=== PATIENT | female | born 1975 | race Caucasian/White ===

== ENCOUNTER 2024-02-25 09:02 | Inpatient (IN) | payer BC, SELFPAY ==
[2024-02-24] VITALS (16 sets, daily range): BP systolic 46–103; BP diastolic 33–79; BMI 25.5; BMI 25.7
[2024-02-24 14:46] LABS: % Basophils 0.9 % (0-2); % Eosinophils 6.4 % (0-6); % Immature Granulocytes 0.1 % (0-0.5); % Lymphocytes 27.6 % (20.5-51.1); Absolute Basophils 0.1 10^3/uL (0-0.2); Absolute Eosinophils 0.5 10^3/uL (0-0.7); Absolute Lymphocytes 2.1 10^3/uL (1.2-3.4); Absolute Monocytes 0.8 10^3/uL (0.1-0.6); Absolute Neutrophils 4.2 10^3/uL (1.4-6.5); Hematocrit 37.9 % (37.0-47.0); Hemoglobin 12.8 g/dL (12.0-16.0); Mean Corp Hgb Conc. 33.8 g/dL (33.0-37.0); Mean Corpuscular Hgb 26.6 pg (27.0-31.0); Mean Corpuscular Volume 78.8 fL (81.0-99.0); Mean Platelet Volume 10.8 fL (7.4-10.4); Nucleated Red Blood Cells % 0 %; Platelet Count 274 10^3/uL (130-400); Red Blood Cell Count 4.81 10^6/uL (4.20-5.40); Red Cell Dist. Width 12.5 % (11.5-14.5); White Blood Cell Count 7.6 10^3/uL (4.8-10.8)
[2024-02-24 14:59] LABS: Lactic Acid 1.7 mmol/L (0.7-2.0)
[2024-02-24 15:06] LABS: ALT (SGPT) 18 U/L (0-35); AST (SGOT) 26 U/L (14-36); Albumin 4.1 g/dl (3.5-5.0); Blood Urea Nitrogen 25 mg/dl (7-17); Carbon Dioxide 15 mmol/L (22-30); Chloride 98 mmol/L (98-107); Glucose 226 mg/dl (70-99); Sodium 134 mmol/L (135-145); eGFR > 60.00
[2024-02-24 15:11] LABS: Troponin I < 0.012 ng/ml
[2024-02-24 15:15] LABS: Alkaline Phosphatase 57 U/L (38-126)
[2024-02-24] MEDS: NSS 1500 IV (15:59)
--- NOTE | 2024-02-24 16:17 | EDRN ---
Dr. Cook in room w/ pt.
--- NOTE | 2024-02-24 16:53 | ED.GENMED ---
History of Present Illness
General
Chief Complaint: Weakness
Source: patient and family (Mother who is at the bedside)
Exam Limitations: none
Time Seen by Provider: 02/24/24 15:49
Nursing documentation reviewed up to this point in time: agreed with
History of Present Illness
History of Present Illness:
The patient is a 48-year-old female with past medical history of insulin-dependent diabetes who reports 2 weeks of decreased appetite, persistent nausea and vomiting. Patient reports anytime she eats something, she vomits it up. She also reports
months of diffuse bodyaches and joint pain. Additionally, she reports a low-grade fever, occurring in the evening for months. She reports of recent, the fevers have been higher. However, she denies cough and sore throat. She denies all abdominal
pain. She denies diarrhea. She denies headache and rash. She states she has lost about 12 pounds over the last 2 weeks. She attributes this to possibly not taking her pancreatic enzyme, however, she stopped taking this years ago.
Past History
Past History
ED Past Medical History: IDDM and Hypothyroidism
ED Past Surgical History: Other
Social History
Tobacco: Smoker
Alcohol: Occasional
Drug: None
Personal:
Living: with family
Employment: Employed
Family History
Family History: Hypertension
Review of Systems
Review of Systems
Allergies reviewed?: Yes
Other source history: family
All Other Systems: ROS reviewed and negative except as documented in HPI and ROS
Constitutional: Reports fever, weight loss, fatigue and chills
EENT: Reports no symptoms
Respiratory: Reports no symptoms
Cardiac: Reports no symptoms
ABD/GI: Reports nausea, vomiting and anorexia; Denies abdominal pain
: Reports no symptoms
Musculoskeletal: Reports joint pain and muscle stiffness
Skin: Reports no symptoms
Neurological: Reports no symptoms
Endocrine: Reports no symptoms
Hematologic/Lymphatic: Reports no symptoms
Psychiatric: Reports no symptoms
Phy Exam
Physical Exam
Physical Exam:
Physical Exam
General: Patient appears pale and tired but fully awake and conversational
Neck: supple. no meningeal signs. Dry mucous membranes
Heart: Tachycardic
Lungs: no acute respiratory distress. clear bilaterally
Abdomen: normal bowel sounds. not tender. no CVAT
Neuro: alert and oriented. no focal neurological deficits
Skin: no rash
Psychiatric: well kept. interactive and cooperative
Extremities: no edema. no calf tenderness. negative homans. good distal pulses
Course
Orders/Labs/Results
Orders:
Orders
02/24/24 14:22
Electrocardiogram (*1) Urgent
Reason for Study: Shortness of Breath
02/24/24 14:23
EKG- Treatment ONCE
02/24/24 14:37
Type+Screen Urgent
Complete Blood Count/With Diff Urgent
Comprehensive Metabolic Panel Urgent
HCG, Serum Qualitative Screen Urgent
Lactic Acid Urgent
Lipase Urgent
Troponin I Urgent
02/24/24 15:54
0.9% Sodium Chloride 1000 ml [Nss] 1,500 ml IV BOLUS
02/24/24 15:56
ABO2 Urgent
BBK Wristband Number:
Associate notified that ABO2 has been ordered: [id number]
Date: 02/24/24
Time: 15:18
Senior Infrastructure Engineer ID: [id number]
02/24/24 16:34
Add On- LAB Urgent
Tests Added?: lipase
02/24/24 16:35
Add On- LAB Urgent
Tests Added?: serum HCG qualitative
Abnormal Lab Results
02/24/24
14:37
MCV 78.8 L fL
(81.0-99.0)
MCH 26.6 L pg
(27.0-31.0)
MPV 10.8 H fL
(7.4-10.4)
Absolute Monos (auto) 0.8 H 10^3/uL
(0.1-0.6)
Monocytes % 10.0 H %
(1.7-9.3)
Eosinophils % 6.4 H %
(0-6)
Sodium 134 L mmol/L
(135-145)
Carbon Dioxide 15 L mmol/L
(22-30)
BUN 25 H mg/dl
(7-17)
Creatinine 1.1 H mg/dL
(0.6-1.0)
Glucose 226 H mg/dl
(70-99)
Calcium 12.0 H mg/dl
(8.4-10.2)
Lipase 16 L U/L
(23-300)
02/24/24 14:37
02/24/24 14:37
Vital Signs
Initial and Last Documented VS:
Initial Vital Signs
Temp Pulse Resp BP Pulse Ox
98.4 F 121 20 98/64 97
02/24/24 14:25 02/24/24 14:25 02/24/24 14:25 02/24/24 14:25 02/24/24 14:25
Last Documented Vital Signs
Temp Pulse Resp BP Pulse Ox
98.4 F 103 13 95/66 100
02/24/24 14:25 02/24/24 17:20 02/24/24 17:20 02/24/24 17:20 02/24/24 17:20
MDM/Problems Addressed
Differential Diagnosis Includes:
DKA, gastritis, delayed stomach emptying due to diabetes
MDM/Problems Addressed:
Patient presents with subacute nausea and vomiting
Chronic conditions affecting care: DM
Acute Exacerbation and/or Progression of Chronic Illness:
Patient is acutely hyperglycemic
*Pulse Oximetry
Patient hypoxic: no
*EKG
Interpreted by ED Provider?: NA
*Bottom Saw Operator Interpretation
Rate: tachycardiac
Interpretation: abnormal
Rhythm: sinus
*Critical Care Note
Total Time (30-74mins, 75-104mins- exclusive of procedures): Not Applicable
Data Reviewed
Source: patient and family
Patient Management
Social determinants of health affecting care: Living situation and Strong social support
ED Attending Note
-
Portions of this chart may have been created with voice recognition software.� Occasional wrong word or��sound alike� substitutions may have occurred due to the inherent limitations of voice recognition software.
Discharge Plan
Departure
Patient Disposition: Admit
Date of Disposition: 02/24/24
Time of Disposition: 17:33
Admit to: Med/Surg
Presentation/result/management discussed w/ accepting MD/DO: Hospitalist
Patient with high blood pressure during this ER visit?: No
Condition: Fair
Covid-19: Not Applicable
Discharge Problem:
Intractable nausea and vomiting, Acute dehydration
Prescriptions:
No Action
lisinopril 5 MG tablet
5 mg PO DAILY Qty: 20 0RF
Referrals:
NONE,* [Family Provider] -
Interventions
Interventions:
*Risk Screen - Suicide Last Done: 02/24/24 15:18
*General Assessment Last Done: 02/24/24 15:19
*Neglect/Abuse Screening Last Done: 02/24/24 15:18
ED- Fall Risk Assessment Last Done: 02/24/24 15:18
*ED COVID-19 Vaccine History Last Done: 02/24/24 15:18
ED- Cardiac Assessment Last Done: 02/24/24 16:04
ED- Neurological Assessment Last Done: 02/24/24 16:00
ED- Pulmonary Assessment Last Done: 02/24/24 16:00
Discharge Date and Time
Print Language: OCCITAN
[2024-02-24 17:02] LABS: HCG, Serum Qualitative Screen Negative
[2024-02-24 17:09] LABS: Lipase 16 U/L (23-300)
--- NOTE | 2024-02-24 18:11 | EDRN ---
Dr. Nettles in room w/ pt.
--- NOTE | 2024-02-24 18:25 | HPS.HSE ---
Family Physician
-
Family Physician: * NONE
Chief Complaint
-
Weakness
History of Present Illness
48-year-old female with past medical history of insulin-dependent diabetes mellitus, hypothyroidism came to the hospital with weeks to months of decreased appetite, persistent nausea and vomiting. Patient has been going through a divorce and has
not been eating much lately. Per patient she does complain of early satiety. Does report she is up-to-date with her mammogram however has not gotten colonoscopy. Denies any fever/chills. Does report very weak at times. Denies any recent travel.
Medical History
Past Medical History
Past Medical History: Reports Hypothyroidism and IDDM
Past Surgical History: Reports Other
Social History
Tobacco: Smoker
Alcohol: Occasional
Drug: None
Family History
Family History: Not pertinent
Allergies / Home Medications
Allergies reflects when Allergies were last updated in [facility].
Home Medications with original date entered in [facility]
Allergy/Medication List:
Allergies
Allergy/AdvReac Type Severity Reaction Status Date / Time
Sulfa (Sulfonamide Allergy Unknown Verified 02/24/24 14:24
Antibiotics)
vancomycin Allergy Hives Verified 02/24/24 14:24
Home Medications
calcium carbonate 500 mg PO DAILY 02/24/24
cholecalciferol (vit D3) 1,000 unit-vitamin K2 (MK4) 100 mcg tablet 1 tab PO DAILY 02/24/24
ibuprofen 200 mg tablet 400 mg PO BIDPRN PRN fever/headache 02/24/24
insulin glargine-yfgn 100 unit/mL (3 mL) subcutaneous pen (Semglee (insulin glargine-yfgn) Pen) 18 unit SC DAILY 02/24/24
insulin lispro 100 unit/mL subcutaneous pen (Humalog KwikPen (U-100) Insulin) 1 sliding scale dose SC AC 02/24/24
levothyroxine 175 mcg/mL oral solution (Tirosint-Amber) 175 mcg PO DAILY 02/24/24
meloxicam 15 mg tablet 15 mg PO DAILYPRN PRN moderate pain 02/24/24
therapeutic multivitamin 1 tab PO DAILY 02/24/24
Review of Systems
-
History Source: Patient
A 12 point ROS was completed and negative except as noted: Yes
Abdomen/GI: Reports Nausea and Vomiting
Physical Exam
Vital Signs
Vital Signs
Temp Pulse Resp BP Pulse Ox
98.4 F 103 16 94/79 100
02/24/24 14:25 02/24/24 18:15 02/24/24 18:15 02/24/24 18:00 02/24/24 18:15
Physical Exam
General: No Apparent Distress and Comfortable
HEENT: Anicteric and Moist mucous membranes
Respiratory: Clear; No Wheezes
Cardiac: S1/S2 and Regular Rhythm
GI: Soft, Non Tender and Non Distended
Rectal: Deferred by Provider
Genito-urinary: No Tim
Musculoskeletal: No Edema
Neuro: Awake, Alert, Oriented and AO x 3
Psych: Calm
Laboratory Results
-
02/24/24 14:37
02/24/24 14:37
Laboratory Results
Lactic Acid 1.7 mmol/L (0.7-2.0) 02/24/24 14:37
Total Bilirubin 1.0 mg/dl (0.2-1.3) 02/24/24 14:37
AST 26 U/L (14-36) 02/24/24 14:37
ALT 18 U/L (0-35) 02/24/24 14:37
Alkaline Phosphatase 57 U/L (38-126) 02/24/24 14:37
Troponin I < 0.012 ng/ml 02/24/24 14:37
Lipase 16 U/L (23-300) L 02/24/24 14:37
Data Reviewed
-
Lab Data: Labs Reviewed by me, Discussed with Patient and Discussed with Family
Impression/Plan
-
Weakness suspect likely secondary to malnutrition and severe dehydration
Weight loss, early satiety. would need to r/o malignancy
Continue with fluids
Used to be on pancrelipase however stopped taking, start pancreas enzymes
Intractable nausea and vomiting, check abdominal CT scan
Check UA
Check iron panel, B12, folate
History of type 1 diabetes mellitus
Continue with insulin, Accu-Cheks
A1c
Hypercalcemia
Has been taking calcium supplements, will hold
Continue with fluids
Hyponatremia
Monitor
History of hypothyroidism
Check TSH with reflex to T4
Continue thyroid
DVT prophylaxis
Heparin
Full code
I spent a total of 76 minutes with the patient or on the floor. More than 50% of this time involved counseling and coordination of care.
[2024-02-24] MEDS: LR 1000 IV (19:26)
[2024-02-24 19:31] LABS: Iron 68 ug/dl (37-170)
[2024-02-24 19:41] LABS: Percent Saturation 33 % (20-50); Total Iron Binding Capacity 201 ug/dl (265-497)
[2024-02-24 20:39] LABS: Creatine Phosphokinase 32 U/L (30-135); Folate > 20.0 ng/ml (2.76-20); Vitamin B12 616 pg/ml (239-931)
[2024-02-24 21:08] LABS: Urine Albumin Negative (Neg - Trace); Urine Bilirubin Negative (Negative); Urine Character Clear (Clear); Urine Color Yellow; Urine Glucose Negative (Negative); Urine Ketone 3+ (Negative); Urine Leukocyte Trace (Negative); Urine Nitrite Negative (Negative); Urine Occult Blood Negative (Negative); Urine Urobilinogen Negative (Neg - 1+)
[2024-02-24 21:28] LABS: Amphetamines Negative (Negative); Barbiturates Negative (Negative); Benzodiazepines Negative (Negative); Buprenorphine Negative (Negative); Cocaine Negative (Negative); Marijuana Negative (Negative); Methadone Negative (Negative); Methamphetamines Negative (Negative); Opiates Negative (Negative); Phencyclidine Negative (Negative); Tricyclic Antidepressants Negative (Negative)
[2024-02-24] MEDS: HEPARIN 5000 UNITS SC (21:30)
[2024-02-24] MEDS: ZENPEP DELAYED RELEASE CAPSULE 1 CAPSULE PO (21:30)
[2024-02-24 21:31] LABS: Urine Red Blood Cell None Seen /HPF (0-2)
[2024-02-24 21:52] LABS: Urine Sodium 104 mmol/L (30-90)
--- NOTE | 2024-02-25 01:47 | PTCARENOTE ---
he patient is a 48-year-old female with past medical history of insulin-dependent diabetes who reports 2 weeks of decreased appetite, persistent nausea and vomiting. Patient reports anytime she eats something, she vomits it up. She also reports
months of diffuse body aches and joint pain. Additionally, she reports a low-grade fever, occurring in the evening for months. She reports of recent, the fevers have been higher. However, she denies cough and sore throat. She denies all
abdominal pain. She denies diarrhea. She denies headache and rash. She states she has lost about 12 pounds over the last 2 weeks. She attributes this to possibly not taking her pancreatic enzyme, however, she stopped taking this years ago.
02/23: US B/L LE; There is no evidence for deep venous thrombosis bilaterally. There is normal compressibility, color flow, and spectral Doppler flow of the deep venous system bilaterally from the common femoral vein through the posterior tibial
vein. The proximal greater saphenous veins are also patent bilaterally.
CT abd/pelvis: Moderate diffuse atrophy of the pancreas with no evidence for pancreatic mass lesion.
[2024-02-25 03:12] VITALS: BP 128/83
[2024-02-25] MEDS: LR 1000 IV ×2 (05:28→15:42)
[2024-02-25] MEDS: SYNTHROID 175 MCG PO (05:29)
[2024-02-25 07:00] VITALS: BP 95/60
[2024-02-25 07:26] LABS: % Basophils 0.7 % (0-2); % Eosinophils 7.8 % (0-6); % Immature Granulocytes 0.4 % (0-0.5); % Lymphocytes 28.9 % (20.5-51.1); % Monocytes 8.5 % (1.7-9.3); % Neutrophils 53.7 % (42.2-75.2); Absolute Eosinophils 0.4 10^3/uL (0-0.7); Absolute Lymphocytes 1.6 10^3/uL (1.2-3.4); Absolute Monocytes 0.5 10^3/uL (0.1-0.6); Absolute Neutrophils 2.9 10^3/uL (1.4-6.5); Hematocrit 35.1 % (37.0-47.0); Hemoglobin 11.6 g/dL (12.0-16.0); Mean Corpuscular Hgb 26.5 pg (27.0-31.0); Mean Corpuscular Volume 80.1 fL (81.0-99.0); Mean Platelet Volume 11.6 fL (7.4-10.4); Nucleated Red Blood Cells % 0 %; Platelet Count 230 10^3/uL (130-400); Red Blood Cell Count 4.38 10^6/uL (4.20-5.40); Red Cell Dist. Width 12.5 % (11.5-14.5); White Blood Cell Count 5.4 10^3/uL (4.8-10.8)
[2024-02-25] MEDS: ZENPEP DELAYED RELEASE CAPSULE 1 CAPSULE PO ×4 (08:22→21:22)
[2024-02-25] MEDS: VITAMIN D3 (cholecalciferol) 25 MCG PO (08:22)
[2024-02-25] MEDS: THERAGRAN 1 TABLET PO (08:22)
[2024-02-25] MEDS: HEPARIN 5000 UNITS SC ×2 (08:22→21:17)
[2024-02-25] MEDS: LANTUS 0.18 UNITS SC (08:22)
[2024-02-25] MEDS: NOVOLOG FLEXPEN-LOW RESISTANCE SC ×3 (08:30→17:16)
[2024-02-25 08:37] LABS: TSH Reflex To Free T4 4.73 uIU/ml (0.47-4.68)
[2024-02-25 08:38] LABS: Glucose - Point of Care 141 mg/dl (70-99)
[2024-02-25 09:24] LABS: Free T4 1.13 ng/dl (0.78-2.19)
[2024-02-25] MEDS: ZOSYN 50 IV ×3 (09:32→21:18)
[2024-02-25 09:44] LABS: Glycohemoglobin (HgbA1c) 7.1 % (4.0-5.6)
[2024-02-25] MEDS: LIDOCAINE 4% PATCH 1 PATCH TOPICAL (10:20)
[2024-02-25] MEDS: TYLENOL 650 MG PO (10:20)
[2024-02-25 11:00] VITALS: BP 93/70
[2024-02-25 11:59] VITALS: BMI 25.7
[2024-02-25 12:32] LABS: Glucose - Point of Care 129 mg/dl (70-99)
--- NOTE | 2024-02-25 12:51 | W.PN.HOSP.TC ---
Addendum entered and electronically signed by Abilio Nettles MD 02/25/24 13:35:
Hypomagnesemia
Replete
Original Note:
Today's Communication/Plan
-
Monitor vital signs see plan
Start Zosyn
Continue fluids
Clears for now
Continue insulin
Assessment / Plan
Assessment / Plan
General: No Apparent Distress and Comfortable
HEENT: Anicteric and Moist mucous membranes
Respiratory: Clear; No Wheezes
Cardiac: S1/S2 and Regular Rhythm
GI: Soft, Non Tender and Non Distended
Genito-urinary: No Tim
Musculoskeletal: No Edema
Neuro: Awake, Alert, Oriented and AO x 3
Psych: Calm
Weakness suspect likely secondary to malnutrition and severe dehydration and acute diverticulitis
Weight loss, early satiety. would need to r/o malignancy
Continue with fluids
Used to be on pancrelipase however stopped taking, start pancreas enzymes
b12,folate wnl
N/V suspect 2/2 acute diverticulitis
Continue with clears
Start Zosyn
Monitor
Patient will need colonoscopy in [address] to [address] noted; also has pancreas atrophy; pancrealipase restarted
History of type 1 diabetes mellitus
Continue with insulin, Accu-Cheks
A1c 7.1
Hypercalcemia
Has been taking calcium supplements, will hold
Continue with fluids
Hyponatremia
Monitor
History of hypothyroidism
TSH high but normal free T4
Continue thyroid
DVT prophylaxis
Heparin
Full code
I spent a total of 51 minutes with the patient or on the floor. More than 50% of this time involved counseling and coordination of care.
Anticipated Discharge: > 48 hours
Subjective/Interval History
-
Date of Service: February 25, 2024
denies nausea
Objective Data
-
Labs:
Laboratory Results
02/25/24 02/25/24 02/25/24
06:13 06:13 06:13
WBC 5.4
Hgb 11.6 L
Hct 35.1 L
Plt Count 230
Sodium Cancelled Cancelled
Potassium Cancelled Cancelled
Chloride Cancelled
Carbon Dioxide
BUN
Creatinine
Glucose
Calcium
Total Bilirubin
AST
ALT
Alkaline Phosphatase
02/25/24 02/25/24 02/25/24
06:13 06:13 06:13
WBC
Hgb
Hct
Plt Count
Sodium
Potassium
Chloride Cancelled
Carbon Dioxide Cancelled Cancelled
BUN Cancelled Cancelled
Creatinine Cancelled
Glucose
Calcium
Total Bilirubin
AST
ALT
Alkaline Phosphatase
02/25/24 02/25/24 02/25/24
06:13 06:13 06:13
WBC
Hgb
Hct
Plt Count
Sodium
Potassium
Chloride
Carbon Dioxide
BUN
Creatinine Cancelled
Glucose Cancelled Cancelled
Calcium Cancelled Cancelled
Total Bilirubin Cancelled
AST
ALT
Alkaline Phosphatase
02/25/24 02/25/24 02/25/24
06:13 06:13 06:13
WBC
Hgb
Hct
Plt Count
Sodium
Potassium
Chloride
Carbon Dioxide
BUN
Creatinine
Glucose
Calcium
Total Bilirubin Cancelled
AST Cancelled Cancelled
ALT Cancelled Cancelled
Alkaline Phosphatase Cancelled
02/25/24 02/25/24 02/25/24
06:13 07:34 12:28
WBC
Hgb
Hct
Plt Count
Sodium Cancelled Pending
Potassium Cancelled Pending
Chloride Cancelled Pending
Carbon Dioxide Cancelled Pending
BUN Cancelled Pending
Creatinine Cancelled Pending
Glucose Cancelled Pending
Calcium Cancelled Pending
Total Bilirubin Cancelled Pending
AST Cancelled Pending
ALT Cancelled Pending
Alkaline Phosphatase Cancelled Cancelled Pending
Vital Signs:
Vital Signs
Temp Pulse Resp BP Pulse Ox
97.9 F 98 16 93/70 98
02/25/24 11:00 02/25/24 11:00 02/25/24 11:00 02/25/24 11:00 02/25/24 11:00
I&O
02/24/24 02/25/24 02/26/24
06:59 06:59 06:59
Intake Total 600 / 600
Balance 600 / 600
[2024-02-25 13:28] LABS: ALT (SGPT) 14 U/L (0-35); AST (SGOT) 22 U/L (14-36); Albumin 3.1 g/dl (3.5-5.0); Alkaline Phosphatase 41 U/L (38-126); Blood Urea Nitrogen 17 mg/dl (7-17); Calcium 11.2 mg/dl (8.4-10.2); Carbon Dioxide 16 mmol/L (22-30); Chloride 102 mmol/L (98-107); Estimated Creatinine Clearance 62 ml/min; Glucose 119 mg/dl (70-99); Magnesium 0.8 mg/dl (1.6-2.3); Phosphorus 5.4 mg/dl (2.5-4.5); Potassium 4.6 mmol/L (3.5-5.1); Sodium 133 mmol/L (135-145); Total Bilirubin 0.8 mg/dl (0.2-1.3); Total Protein 5.8 g/dl (6.3-8.2); eGFR > 60.00
[2024-02-25] MEDS: MAGNESIUM SULFATE 100 IV (13:58)
[2024-02-25 15:00] VITALS: BP 107/72
--- NOTE | 2024-02-25 15:37 | CM ---
Addendum entered by Eva Choi RN 02/25/24 15:41:
Reg observation letter given explained signed on chart.
Original Note:
Alert awake oriented patient who lives alone in an apartment with an elevator. She has supportive mom Rebeka and dgt Barbara. She is independent in driving and all activates of daily living.She was offered Vn she declined need.No adaptive devices.
Had VN in past . No SNF hx
Pharmacy [facility].
PCP She has none. She said she will call back of her insurance card and call of PCP with openings.
PLAN Home with no anticipated needs
[2024-02-25 17:16] LABS: Glucose - Point of Care 135 mg/dl (70-99)
[2024-02-25 19:00] VITALS: BP 118/78
[2024-02-25] MEDS: ZYRTEC 5 MG PO (21:18)
[2024-02-25 22:06] LABS: Glucose - Point of Care 158 mg/dl (70-99)
[2024-02-25 23:00] VITALS: BP 101/69
[2024-02-26 03:00] VITALS: BP 106/72
[2024-02-26] MEDS: LR 1000 IV (03:36)
[2024-02-26] MEDS: ZOSYN 50 IV ×4 (03:37→21:27)
[2024-02-26 06:00] VITALS: BMI 26.4
[2024-02-26] MEDS: SYNTHROID 175 MCG PO (06:30)
[2024-02-26 07:30] VITALS: BP 107/73
[2024-02-26 08:10] LABS: % Basophils 0.8 % (0-2); % Eosinophils 8.4 % (0-6); % Immature Granulocytes 0.3 % (0-0.5); % Lymphocytes 29.9 % (20.5-51.1); % Monocytes 8.4 % (1.7-9.3); % Neutrophils 52.2 % (42.2-75.2); Absolute Eosinophils 0.3 10^3/uL (0-0.7); Absolute Lymphocytes 1.2 10^3/uL (1.2-3.4); Absolute Monocytes 0.3 10^3/uL (0.1-0.6); Absolute Neutrophils 2.1 10^3/uL (1.4-6.5); Hematocrit 32.1 % (37.0-47.0); Hemoglobin 11.1 g/dL (12.0-16.0); Mean Corp Hgb Conc. 34.6 g/dL (33.0-37.0); Mean Corpuscular Hgb 27.6 pg (27.0-31.0); Mean Corpuscular Volume 79.9 fL (81.0-99.0); Mean Platelet Volume 10.6 fL (7.4-10.4); Nucleated Red Blood Cells % 0 %; Platelet Count 207 10^3/uL (130-400); Red Blood Cell Count 4.02 10^6/uL (4.20-5.40); Red Cell Dist. Width 12.3 % (11.5-14.5); White Blood Cell Count 3.9 10^3/uL (4.8-10.8)
[2024-02-26 08:22] LABS: Glucose - Point of Care 64 mg/dl (70-99)
[2024-02-26 08:45] LABS: ALT (SGPT) 14 U/L (0-35); AST (SGOT) 25 U/L (14-36); Albumin 3.1 g/dl (3.5-5.0); Alkaline Phosphatase 43 U/L (38-126); Blood Urea Nitrogen 10 mg/dl (7-17); Calcium 10.4 mg/dl (8.4-10.2); Carbon Dioxide 19 mmol/L (22-30); Chloride 101 mmol/L (98-107); Estimated Creatinine Clearance 70 ml/min; Glucose 72 mg/dl (70-99); Magnesium 1.3 mg/dl (1.6-2.3); Phosphorus 5.1 mg/dl (2.5-4.5); Potassium 4.1 mmol/L (3.5-5.1); Sodium 135 mmol/L (135-145); Total Bilirubin 0.6 mg/dl (0.2-1.3); Total Protein 5.8 g/dl (6.3-8.2); eGFR > 60.00
[2024-02-26 08:56] LABS: Glucose - Point of Care 99 mg/dl (70-99)
[2024-02-26] MEDS: NOVOLOG FLEXPEN-LOW RESISTANCE SC (09:16)
--- NOTE | 2024-02-26 10:02 | CM ---
Pt seen at bedside. She states she is doing better but not physically.
Pt confirmed she lives alone and family can assist if needed, however, they live in [place], [place].
Pt confirmed that she will call someone for a ride home at d/c.
Plan: D/c home, anticipating no needs
[2024-02-26] MEDS: HEPARIN 5000 UNITS SC ×2 (10:04→21:27)
[2024-02-26] MEDS: ZENPEP DELAYED RELEASE CAPSULE 1 CAPSULE PO ×2 (10:04→13:58)
--- NOTE | 2024-02-26 10:04 | W.PN.HOSP.TC ---
Today's Communication/Plan
-
replace Mg
c/w IV Zosyn
start vitamin supplement upon dc
Advance diet as tolerated
Assessment / Plan
Assessment / Plan
Physical exam:
General: No Apparent Distress and Comfortable
HEENT: Anicteric and Moist mucous membranes
Respiratory: Clear; No Wheezes
Cardiac: S1/S2 and Regular Rhythm
GI: Soft, Non Tender and Non Distended
Genito-urinary: No Tim
Musculoskeletal: No Edema
Neuro: Awake, Alert, Oriented and AO x 3
Psych: Calm
# Acute diverticulitis
CT showed diverticulitis involving the superior aspect of the descending colon,
Continue with clears
c/w Zosyn
Less abdominal pain, no tenderness on exam this morning
CT noted; also has pancreas atrophy; pancreatolipase restarted
# Status post gastric bypass surgery
Weakness suspect likely secondary to malnutrition and severe dehydration and acute diverticulitis
Weight loss, early satiety.
Continue with fluids
PPI
Vitamin supplements
Used to be on pancrelipase however stopped taking, started pancreas enzymes
b12,folate wnl
# Hypomagnesemia
#History of type 1 diabetes mellitus
Continue with insulin, Accu-Cheks
A1c 7.1
# Hypercalcemia
Has been taking calcium supplements
s/p fluids
Hyponatremia
Monitor
No confusion
History of hypothyroidism
TSH high but normal free T4
Continue thyroid
DVT prophylaxis
SQ Heparin
Full code
Total time spent to see the patient, examine the patient on the floor, review data and lab results, discuss treatment plan with patient, nursing staff around 55 minutes
Anticipated Discharge: 24 - 48 hours
Subjective/Interval History
-
Date of Service: February 26, 2024
She feels better
less abd pain
No nausea
Objective Data
-
Labs:
Laboratory Results
02/26/24
08:01
WBC 3.9 L
Hgb 11.1 L
Hct 32.1 L
Plt Count 207
Sodium 135
Potassium 4.1
Chloride 101
Carbon Dioxide 19 L
BUN 10
Creatinine 0.8
Glucose 72
Calcium 10.4 H
Total Bilirubin 0.6
AST 25
ALT 14
Alkaline Phosphatase 43
Vital Signs:
Vital Signs
Temp Pulse Resp BP Pulse Ox
97.7 F 97 16 107/73 99
02/26/24 07:30 02/26/24 07:30 02/26/24 07:30 02/26/24 07:30 02/26/24 07:30
I&O
02/25/24 02/26/24 02/27/24
06:59 06:59 06:59
Intake Total 600 / 600 600 / 600
Balance 600 / 600 600 / 600
[2024-02-26] MEDS: LIDOCAINE 4% PATCH 1 PATCH TOPICAL (10:05)
[2024-02-26] MEDS: LANTUS 0.18 UNITS SC (10:05)
[2024-02-26] MEDS: THERAGRAN 1 TABLET PO (10:05)
[2024-02-26] MEDS: VITAMIN D3 (cholecalciferol) 25 MCG PO (10:06)
[2024-02-26] MEDS: MAGNESIUM SULFATE 100 IV (10:58)
[2024-02-26 11:22] VITALS: BP 97/71
[2024-02-26 12:20] LABS: Glucose - Point of Care 167 mg/dl (70-99)
--- NOTE | 2024-02-26 12:20 | CON.GI ---
Addendum entered and electronically signed by Hazel Mcmahan MD 02/26/24 14:39:
I saw and examined the patient.
The DESOLDERER's note was reviewed and I agree with the note.
Comment: This is a 48-year-old female with prior history of gastric bypass- [facility] at [place] in 2017 and subsequently lost about 70 pounds she then was diagnosed with EPI with her GI at [place] in 2019 and had been on pancreatic enzyme supplements but
she subsequently moved to this area and had stopped taking the supplements in 2020, diabetes, hypothyroidism who now presents to the ER with profound weakness and arthralgias and myalgias. She says that she has seen rheumatology for this and
essentially had negative workup. She has not yet seen a neurologist. CT on admission was concerning for acute diverticulitis but patient denies any abdominal pain. She has no nausea or vomiting currently but has had loss of appetite with early
satiety and has not really eaten for the past 1 week and in fact over the past 3 months has lost 50 pounds. No rectal bleeding or melena she has not had a colonoscopy in the past. She has been under a lot of stress lately she had gone through a
divorce but her ex- still lives in her house. Her admission labs do show hypomagnesemia, hypercalcemia and hyperglycemia with hypoalbuminemia
Assessment and plan 1 profound weakness with difficulty walking with balance issues and also has been having muscle and joint pains. Her CK was normal, B12, folic acid and free T4 also was normal since admission. She as described above had recent
rheumatological workup that was negative also. She does have hypomagnesemia which is being corrected she also has hypercalcemia with hypoalbuminemia and corrected calcium is still elevated could be related to dehydration with decreased oral intake
but if still persistently high after IVF may need further workup including PTH and also ruling out multiple myeloma. Her kidney function is unremarkable.
2. She also has symptoms of weight loss with occ nausea vomiting and early satiety which I think most likely is related to her prior gastric bypass and possible gastroparesis encouraged her to eat small frequent meals and also add protein
supplements daily. Will need outpatient endoscopy and gastric emptying study if symptoms do not improve. Continue Zofran as needed and Pepcid currently really has nausea heartburn symptoms. I do think a lot of her symptoms are related to recent
exacerbated stress that she has been under she recently went through a divorce. She may need neurology and psychiatric consults also. Can be done as an outpatient versus inpatient
3. incidental finding of diverticulitis noted on CT but she currently really has no abdominal pain or tenderness consider DC antibiotics, she will need a colonoscopy which can we can schedule along with endoscopy as outpatient in 6 to 8 weeks.
4. History of EPI diagnosed in 2019 with her outpatient GI at [place] and unfortunately she had stopped taking pancreatic enzyme supplements in 2020 they have been resumed and encouraged compliance
GI will sign off and will be available as needed
Original Note:
Consultation
-
Date/Time Consultation Requested: 02/26/24 0645
Date/Time Consultation Performed: 02/26/24 1220
Requesting Provider: Lisa Pablo MD
Performing Provider: BANDAR Cardona, Hazel mcmahan MD
Reason for Consultation: wt loss, decreased appetite
Medical History
Chief Complaint / HPI
Chief Complaint: joint pain, weakness, decreased appetite
History of Present Illness:
Pt is a 48yo with hx gastric bypass, IDDM, hypothyroidism presents to hospital with nausea/vomiting, wt loss (April 2021 185lbs - 159 lbs after bypass, now 134lbs), anxiety but also with ongoing joint pains and difficulty walking. She has seen
rheumatology with neg work up. On admission she is noted with creat 1.1 glucose 226, calcium 12, albumin 3.1 and mag 0.[address] on admission with concern for diverticulitis though denies abdominal pain.
Pt otherwise denies dysphagia, GERD, hematemesis, abdominal pain, diarrhea, constipation or rectal bleeding. Pt does admit to recent NSAID use on occasion with joint pains. She also admits to some stress with divorce. Pt admits to compliance
with vitamins post bypass.
Past Medical History
Past Medical History: Hypothyroidism and IDDM
Past Surgical History: Other (gastric bypass)
Social History
Tobacco: Non-Smoker
Alcohol: Occasional
Drug: None
Personal: (currently dealing with divorce)
Employment: Employed (works as bench scientist )
Family History
Family History: Reviewed & Not Pertinent
Allergies / Home Medications
Allergy/AdvReac Type Severity Reaction Status Date / Time
Sulfa (Sulfonamide Allergy Unknown Verified 02/24/24 14:24
Antibiotics)
vancomycin Allergy Hives Verified 02/24/24 14:24
�Medication �Instructions �Recorded
calcium carbonate 500 mg PO DAILY Supplement 02/24/24
cholecalciferol (vit D3) 1,000 1 tab PO DAILY Supplement 02/24/24
unit-vitamin K2 (MK4) 100 mcg
tablet
ibuprofen 200 mg tablet 400 mg PO BIDPRN PRN fever/headache 02/24/24
insulin glargine-yfgn 100 unit/mL 18 unit SC DAILY Diabetes 02/24/24
(3 mL) subcutaneous pen (Semglee
(insulin glargine-yfgn) Pen)
insulin lispro 100 unit/mL 1 sliding scale dose SC AC Diabetes 02/24/24
subcutaneous pen (Humalog KwikPen
(U-100) Insulin)
levothyroxine 175 mcg/mL oral 175 mcg PO DAILY Thyroid 02/24/24
solution (Tirosint-Amber)
meloxicam 15 mg tablet 15 mg PO DAILYPRN PRN moderate pain 02/24/24
therapeutic multivitamin 1 tab PO DAILY Supplement 02/24/24
Review of Systems
-
History Source: Patient
Constitutional: Reports Weight Loss
EENT: Reports No Symptoms
Respiratory: Reports No Symptoms
Cardiac: Reports No Symptoms
Abdomen/GI: Reports Nausea, Vomiting and Anorexia
: Reports No Symptoms
Musculoskeletal: Reports Joint Pain
Neurological: Reports Other (difficulty walking )
Endocrine: Reports No Symptoms
Hematologic/Lymphatic: Reports No Symptoms
Vital Signs
Temp Pulse Resp BP Pulse Ox
98.2 F 89 16 97/71 97
02/26/24 11:22 02/26/24 11:22 02/26/24 11:22 02/26/24 11:22 02/26/24 11:22
Physical Exam
Exam
General: Other (depressed affect )
HEENT: Normocephalic and Anicteric
Respiratory: Clear
Cardiac: Regular Rhythm
GI: Soft, Non Tender and Non Distended
Musculoskeletal: No Clubbing and No Cyanosis
Skin: Warm and Dry
Neuro: Awake, Alert and AO x 3
Psych: Calm
Results
WBC 3.9 10^3/uL (4.8-10.8) L 02/26/24 08:01
Hgb 11.1 g/dL (12.0-16.0) L 02/26/24 08:01
Hct 32.1 % (37.0-47.0) L 02/26/24 08:01
MCV 79.9 fL (81.0-99.0) L 02/26/24 08:01
Plt Count 207 10^3/uL (130-400) 02/26/24 08:01
Absolute Neuts (auto) 2.1 10^3/uL (1.4-6.5) 02/26/24 08:01
Sodium 135 mmol/L (135-145) 02/26/24 08:01
Potassium 4.1 mmol/L (3.5-5.1) 02/26/24 08:01
Chloride 101 mmol/L (98-107) 02/26/24 08:01
Carbon Dioxide 19 mmol/L (22-30) L 02/26/24 08:01
BUN 10 mg/dl (7-17) 02/26/24 08:01
Creatinine 0.8 mg/dL (0.6-1.0) 02/26/24 08:01
Calcium 10.4 mg/dl (8.4-10.2) H 02/26/24 08:01
Total Bilirubin 0.6 mg/dl (0.2-1.3) 02/26/24 08:01
AST 25 U/L (14-36) 02/26/24 08:01
ALT 14 U/L (0-35) 02/26/24 08:01
Alkaline Phosphatase 43 U/L (38-126) 02/26/24 08:01
Lipase 16 U/L (23-300) L 02/24/24 14:37
Diagnostic Image Results:
02/24/24 CT Abd/pelvis W Iv Cont
IMPRESSION: As described, CT findings highly suggestive of diverticulitis involving the superior aspect of the descending colon, at the level of the inferior spleen. No evidence for abscess.
Status post gastric bypass surgery. No evidence for bowel obstruction. No evidence of free intraperitoneal air
02/24/24- US LE
IMPRESSION: No evidence of deep venous thrombosis bilaterally.
Prior GI Procedures:
EGD: in past after gastric bypass did not recall finding
Colonoscopy: none
Assessment / Plan
-
Pt is a 48yo with hx gastric bypass, IDDM, hypothyroidism presents to hospital with nausea/vomiting, wt loss (April 2021 185lbs - 159 lbs after bypass, now 134lbs), anxiety but also with ongoing joint pains and difficulty walking. She has seen
rheumatology with neg work up. On admission she is noted with creat 1.1 glucose 226, calcium 12, albumin 3.1 and mag 0.[address] on admission with concern for diverticulitis though denies abdominal pain.
-nausea/vomiting/wt loss
-joint pain/ weakness
-severe hypomagnesemia
-SUMANTH on admission
-diverticulitis with no abdominal pain on exam
-gastric bypass
-stress with recent divorce
other med problems:
-hypothyroidism
-IDDM
PLAN:
etiology of multiple symptoms with nausea/vomiting, weakness, numbness, sleepiness related to low mag vs other
underlying low mag related to anxiety/decreased appetite with stress, gastroparesis witrh some vomiting, vs other
CT with diverticulitis likely overcall as no abdominal pain on exam t/c d/c abx
OP follow up for colonoscopy screening- GI contact left on chart
support given
add hbg A1C
if weakness and difficulty walking persist consider neuro eval
will follow
-
-
Thank you for consultation and allowing me to participate in the patient's care. Please call the [facility] GI physician during the after hours with any questions or concerns.
[2024-02-26] MEDS: NOVOLOG FLEXPEN-LOW RESISTANCE 1 UNITS SC (13:58)
[2024-02-26 14:58] VITALS: BP 109/70
[2024-02-26] MEDS: ZENPEP DELAYED RELEASE CAPSULE 2 CAPSULE PO (16:55)
[2024-02-26 18:07] LABS: Glucose - Point of Care 216 mg/dl (70-99)
[2024-02-26] MEDS: NOVOLOG FLEXPEN-LOW RESISTANCE 2 UNITS SC (18:45)
[2024-02-26 19:29] VITALS: BP 99/71
[2024-02-26 21:26] LABS: Glucose - Point of Care 273 mg/dl (70-99)
[2024-02-26] MEDS: ZYRTEC 5 MG PO (21:27)
[2024-02-26 23:35] VITALS: BP 92/62
[2024-02-27 00:31] VITALS: BP 92/62
[2024-02-27] MEDS: TYLENOL 650 MG PO (00:53)
[2024-02-27 02:00] LABS: Transferrin 147 mg/dL (200-360)
[2024-02-27 03:19] VITALS: BP 86/65
[2024-02-27] MEDS: ZOSYN 50 IV ×2 (05:00→08:59)
[2024-02-27] MEDS: SYNTHROID 175 MCG PO (05:00)
[2024-02-27 06:00] VITALS: BMI 26.6
[2024-02-27 07:52] LABS: Glucose - Point of Care 129 mg/dl (70-99)
[2024-02-27 07:56] VITALS: BP 99/67
[2024-02-27 08:36] LABS: ALT (SGPT) 15 U/L (0-35); AST (SGOT) 28 U/L (14-36); Alkaline Phosphatase 42 U/L (38-126); Blood Urea Nitrogen 6 mg/dl (7-17); Calcium 9.7 mg/dl (8.4-10.2); Carbon Dioxide 23 mmol/L (22-30); Chloride 99 mmol/L (98-107); Estimated Creatinine Clearance 81 ml/min; Glucose 156 mg/dl (70-99); Magnesium 1.2 mg/dl (1.6-2.3); Potassium 3.9 mmol/L (3.5-5.1); Sodium 134 mmol/L (135-145); Total Bilirubin 0.4 mg/dl (0.2-1.3); Total Protein 5.7 g/dl (6.3-8.2); eGFR > 60.00
[2024-02-27] MEDS: NOVOLOG FLEXPEN-LOW RESISTANCE SC (08:43)
[2024-02-27] MEDS: ZENPEP DELAYED RELEASE CAPSULE 2 CAPSULE PO (08:53)
[2024-02-27] MEDS: HEPARIN 5000 UNITS SC (08:54)
[2024-02-27] MEDS: LANTUS 0.18 UNITS SC (08:54)
[2024-02-27] MEDS: VITAMIN D3 (cholecalciferol) 25 MCG PO (08:54)
[2024-02-27] MEDS: LIDOCAINE 4% PATCH 1 PATCH TOPICAL (08:54)
[2024-02-27] MEDS: THERAGRAN 1 TABLET PO (08:54)
[2024-02-27 09:06] LABS: Glycohemoglobin (HgbA1c) 7.1 % (4.0-5.6)
--- NOTE | 2024-02-27 09:07 | W.PN.HOSP.TC ---
Addendum entered and electronically signed by Lisa Pablo MD 02/27/24 14:07:
Addendum
The patient again. She tolerated lunch and breakfast well without pain or tenderness. No nausea or vomiting.
Given IV magnesium and prescription for oral magnesium with Zofran as needed
Repeat Bp check 101/69.
Given a note to back to work on 03/04.
End
Original Note:
Today's Communication/Plan
-
Discharge after magnesium IV
Assessment / Plan
Assessment / Plan
Physical exam:
General: No Apparent Distress and Comfortable
HEENT: Anicteric and Moist mucous membranes
Respiratory: Clear; No Wheezes
Cardiac: S1/S2 and Regular Rhythm
GI: Soft, Non Tender and Non Distended
Genito-urinary: No Tim
Musculoskeletal: No Edema
Neuro: Awake, Alert, Oriented and AO x 3
Psych: Calm
# Acute diverticulitis , resolving
No abd pain or tenderness on exam, tolerating diet
CT showed diverticulitis involving the superior aspect of the descending colon,
s/p IV Zosyn. No leukocytosis.
GI will see in office for colonoscopy and further evaluation.
CT noted; also has pancreas atrophy; pancreatolipase restarted
# Status post gastric bypass surgery
Weakness suspect likely secondary to malnutrition and severe dehydration
Weight loss, early satiety. Pt will f/w GI.
Vitamin supplements
Used to be on pancrelipase however stopped taking, started pancreas enzymes
b12,folate wnl
# Hypomagnesemia
Replace IV and dc on oral magnesium also
#History of type 1 diabetes mellitus
Continue with insulin, Accu-Cheks
A1c 7.1
# Hypercalcemia, resolved.
Has been taking calcium supplements
s/p fluids
#Hyponatremia
Monitor
No confusion
History of hypothyroidism
TSH high but normal free T4
Continue thyroid
DVT prophylaxis
SQ Heparin
Full code
Total discharge time spent to see the patient, examine the patient on the floor, review data and lab results, discuss discharge plan with patient, nursing staff around 65 minutes
Anticipated Discharge: Today
Subjective/Interval History
-
Date of Service: February 27, 2024
She feels better, tolerated diet, she wants to go home
Objective Data
-
Labs:
Laboratory Results
02/27/24
05:52
Sodium 134 L
Potassium 3.9
Chloride 99
Carbon Dioxide 23
BUN 6 L
Creatinine 0.7
Glucose 156 H
Calcium 9.7
Total Bilirubin 0.4
AST 28
ALT 15
Alkaline Phosphatase 42
Vital Signs:
Vital Signs
Temp Pulse Resp BP Pulse Ox
97.9 F 95 16 99/67 99
02/27/24 07:56 02/27/24 07:56 02/27/24 07:56 02/27/24 07:56 02/27/24 07:56
I&O
02/26/24 02/27/24 02/28/24
06:59 06:59 06:59
Intake Total 600 / 600 240 / 240
Balance 600 / 600 240 / 240
[2024-02-27] MEDS: MAGNESIUM SULFATE 100 IV (10:12)
--- NOTE | 2024-02-27 10:52 | CM ---
MD entered order for discharge.
Spoke with pt she said she was ready for discharge.
She said that her mom Rebeka can drive her home.
Pt needs PCP advised her again to call her insurance company for available md in area and gave her [facility] MD [phone].
Plan Home no needs
[2024-02-27 11:46] LABS: Glucose - Point of Care 193 mg/dl (70-99)
[2024-02-27 11:58] VITALS: BP 88/57
--- NOTE | 2024-02-27 14:00 | W.DCSUMMARY ---
Discharge Summary
Discharge Data
Date of Admission: 02/25/24
Date of Discharge: 02/27/24
-
Pending Results: No
Hospital Course
48 years old female with history of gastric bypass in 2017 weight loss presented with history of weakness, arthralgias and nausea. Scan of the abdomen felt this was concerning for acute diverticulitis involving the superior aspect of the
descending colon colon but she did not have leukocytosis, abdominal pain or tenderness on examination. Patient reported history of weight loss with occasional nausea and vomiting with early satiety. She was taking pancreatic enzymes supplement but
stopped. No history of rectal bleeding or melena. Patient reported citrus for situation at home after divorce. No history of homicidal or suicidal attempts/thoughts. Urine drug screen was negative. Patient received empiric antibiotics for
presumed diverticulitis. Thyroid-stimulating hormone was slightly elevated but free T4 level was normal. Normal vitamin B12 level, elevated folate level. Low normal lipase level. She was evaluated by senior control systems engineer. Gastroenterology doctor
recommended to continue Zofran as needed with pancreatic enzyme supplementation, no need for antibiotic therapy. Also recommended outpatient follow-up and subsequent outpatient endoscopy and gastric emptying study. Patient had hypomagnesemia and
was given replacement therapy, she was given prescription for oral magnesium. Patient tolerated diet. Patient remained hemodynamically stable. Patient was discharged home in stable condition.
Discharge Plan
-
Patient Disposition: Home (Routine Discharge)
Discharge Diagnosis/Procedures: Acute diverticulitis , resolved, received IV antibiotic.
Hypomagnesemia
History of weight loss, loss of appetite, follow with GI doctor for further evaluation.
History of pancreatic insufficiency
Diet: Low Fat
Referrals:
Hazel Mcmahan MD [Active] - (follow up with Dr. Mcmahan or NNEKA to review for colonoscopy)
NONE,* [Family Provider] -
Prescriptions:
New
Zenpep 10,000-32,000 -42,000 unit Capsule,Delayed Release(Dr/Ec)
2 cap PO AC Qty: 180 0RF
magnesium oxide 500 mg capsule
500 mg PO DAILY Qty: 30 0RF
ondansetron HCl 4 mg tablet
4 mg PO Q8H PRN (Reason: nausea and vomiting) Qty: 20 0RF
Continued
Tirosint-Amber 175 mcg/mL solution
175 mcg PO DAILY
meloxicam 15 mg Tablet
15 mg PO DAILYPRN PRN (Reason: moderate pain)
therapeutic multivitamin Tablet
1 tab PO DAILY
ibuprofen 200 mg Tablet
400 mg PO BIDPRN PRN (Reason: fever/headache)
insulin lispro [Humalog KwikPen Insulin] 100 unit/mL Insulin Pen
1 sliding scale dose SC AC
vitamin D3-vitamin K2 (MK4) 1,000-100 unit-mcg Tablet
1 tab PO DAILY
insulin glargine-yfgn [Semglee(insulin glarg-yfgn)Pen] 100 unit/mL (3 mL) Insulin Pen
18 unit SC DAILY
Discontinued
calcium carbonate [Calcium 500] 500 mg calcium (1,250 mg) Tablet
500 mg PO DAILY
Discharge Orders:
Discharge Patient (As Directed); Ordered 02/27/24
Ordered By: Lisa Pablo
Discharge Date and Time
Discharge Date/Time: 02/27/24 13:03
Print Language: TURKISH
== END 2024-02-27 13:03 | disposition home or self-care (01) | DRG 392 ==
LOC: 3 WEST ACU 09:02
PROVIDERS: Emergency Medicine; Nurse Practitioner Adult Health; ADMITTING PHYSICIAN Internal Medicine; ATTENDING PHYSICIAN Internal Medicine; EMERGENCY PHYSICIAN Emergency Medicine; OTHER PHYSICIAN Internal Medicine Gastroenterology
DX: K57.32 Diverticulitis of large intestine without perforation or abscess without bleeding (principal); E87.1 Hypo-osmolality and hyponatremia; F17.200 Nicotine dependence, unspecified, uncomplicated; E83.52 Hypercalcemia; Z98.84 Bariatric surgery status; E83.42 Hypomagnesemia
CPT/HCPCS: 74177; 80053; 80306; 81003; 81015; 82550; 82570; 82607; 82728; 82746; 82962; 83036; 83540; 83550; 83605; 83690; 83735; 84100; 84300; 84439; 84443; 84466; 84484; 84703; 85025; 86850; 86900; 86901; 93005; 93970; 96360; 96361; 99285; Q9967

== ENCOUNTER 2024-03-07 04:00 | Emergency (ER) | payer BC, SELFPAY ==
[2024-03-07 04:01] VITALS: BP 146/92
[2024-03-07 04:04] VITALS: BMI 25.4
[2024-03-07 04:05] LABS: Glucose - Point of Care 212 mg/dl (70-99)
[2024-03-07 04:27] LABS: % Basophils 0.9 % (0-2); % Eosinophils 6.8 % (0-6); % Immature Granulocytes 0.4 % (0-0.5); % Lymphocytes 40.6 % (20.5-51.1); % Monocytes 6.9 % (1.7-9.3); % Neutrophils 44.4 % (42.2-75.2); Absolute Basophils 0.1 10^3/uL (0-0.2); Absolute Eosinophils 0.4 10^3/uL (0-0.7); Absolute Lymphocytes 2.3 10^3/uL (1.2-3.4); Absolute Monocytes 0.4 10^3/uL (0.1-0.6); Absolute Neutrophils 2.5 10^3/uL (1.4-6.5); Hematocrit 36.4 % (37.0-47.0); Hemoglobin 12.1 g/dL (12.0-16.0); Mean Corp Hgb Conc. 33.2 g/dL (33.0-37.0); Mean Corpuscular Hgb 27.6 pg (27.0-31.0); Mean Corpuscular Volume 82.9 fL (81.0-99.0); Mean Platelet Volume 9.8 fL (7.4-10.4); Nucleated Red Blood Cells % 0 %; Platelet Count 333 10^3/uL (130-400); Red Blood Cell Count 4.39 10^6/uL (4.20-5.40); Red Cell Dist. Width 13.2 % (11.5-14.5); White Blood Cell Count 5.6 10^3/uL (4.8-10.8)
--- NOTE | 2024-03-07 04:36 | ED.GENMED ---
History of Present Illness
General
Chief Complaint: Blood Sugar Problem
Source: patient
Exam Limitations: none
Time Seen by Provider: 03/07/24 04:22
Nursing documentation reviewed up to this point in time: agreed with
History of Present Illness
History of Present Illness:
Patient is a 48-year-old female with history of type 1 diabetes presenting to the emergency department via EMS for hypoglycemic episode. Per patient recollection EMS report�it sounds as if patient was yelling/acting strange which her neighbor
overheard and called 911. When medics arrived patient's blood sugar was in the 60s. They gave her glucagon and a bag of D10 with resolution of blood sugar to 212.
On arrival to emergency department�patient states she is tired although feeling back to her baseline. She does report that she has been having frequent hypoglycemic events at night for which she typically drinks juice with normalization in blood
sugar levels. Patient denies any trauma, headache, visual changes, abdominal pain, chest pain, or shortness of breath. No dizziness or lightheadedness.
Patient reports that she takes 18 units of long-acting insulin every morning and bolus insulin with meals. She did not use any insulin with dinner based on her sugar levels. Her last insulin was at lunchtime today and estimates it to be around 3
units.
Patient scheduled to see her fur clipper in 2 weeks.
Past History
Past History
ED Past Medical History: IDDM and Hypothyroidism
ED Past Surgical History: Other
Social History
Tobacco: Smoker
Alcohol: Occasional
Drug: None
Personal:
Living: with family
Employment: Employed
Family History
Family History: Hypertension
Review of Systems
Review of Systems
Allergies reviewed?: Yes
All Other Systems: ROS reviewed and negative except as documented in HPI and ROS
Phy Exam
Physical Exam
Physical Exam:
Vitals: Patient's vital signs are stable. Afebrile
General: Patient is well appearing, no acute distress
Skin: Warm and dry, no rashes or lesions
Head: Normocephalic, atraumatic
Eyes: Sclera nonicteric. EOMs intact. No nystagmus.
Throat: Protecting airway
Neck: Normal ROM, no cervical spine tenderness, no meningismus
Cardiac: Regular rate and rhythm, no murmurs.
Pulm: Normal respiratory effort, no wheezes, rales, rhonchi heard on exam.
Abdomen: Abdomen soft. No abdominal tenderness.
Extremities: No evidence of cyanosis or edema
Neuro: AAOx3. CN II-XII intact. No focal neurologic deficits.
Psychiatric: Normal affect.
Course
Orders/Labs/Results
Orders:
Orders
03/07/24 04:10
Complete Blood Count/With Diff Urgent
Comprehensive Metabolic Panel Urgent
03/07/24 07:21
0.9% Sodium Chloride 1000 ml [Nss] 1,000 ml IV BOLUS
Abnormal Lab Results
03/07/24 03/07/24 03/07/24
04:04 04:10 05:16
Hct 36.4 L %
(37.0-47.0)
Eosinophils % 6.8 H %
(0-6)
Glucose 235 H mg/dl
(70-99)
Total Bilirubin < 0.1 L mg/dl
(0.2-1.3)
AST 45 H U/L
(14-36)
Alkaline Phosphatase 36 L U/L
(38-126)
Total Protein 6.1 L g/dl
(6.3-8.2)
Albumin 3.4 L g/dl
(3.5-5.0)
POC Glucose 212 H mg/dl 204 H mg/dl
(70-99) (70-99)
03/07/24 03/07/24
06:37 08:29
Hct
Eosinophils %
Glucose
Total Bilirubin
AST
Alkaline Phosphatase
Total Protein
Albumin
POC Glucose 200 H mg/dl 186 H mg/dl
(70-99) (70-99)
03/07/24 04:10
03/07/24 04:10
Vital Signs
Initial and Last Documented VS:
Initial Vital Signs
Temp Pulse Resp BP Pulse Ox
98.2 F 75 18 146/92 100
03/07/24 04:01 03/07/24 04:01 03/07/24 04:01 03/07/24 04:01 03/07/24 04:01
Last Documented Vital Signs
Temp Pulse Resp BP Pulse Ox
98.6 F 95 16 97/65 100
03/07/24 07:10 03/07/24 08:00 03/07/24 08:00 03/07/24 08:00 03/07/24 08:00
MDM/Problems Addressed
Differential Diagnosis Includes:
Not limited to: Medication noncompliance, acute hypoglycemia, viral illness, dehydration, etc.
MDM/Problems Addressed:
48-year-old female w/ type 1 diabetes presenting following hypoglycemic episode at home. Patient received glucagon and D10 saline in route via EMS. Patient arrived with glucose of 212. Vital signs stable. Exam as above. Patient appears tired,
although conversational and nontoxic. Abdomen soft and nontender. Cardio/pulmonary assessment unremarkable. No focal neurologic deficits. Patient is alert and oriented x 3 with fluent speech. Patient states feels back to baseline by arrival to
emergency department. Labs were initiated without any clinically significant abnormalities. Patient was monitored in the emergency department for few hours with repeat glucose checks. Glucose has remained above 200. Patient was able to tolerate
some food and water. BP slightly soft�although this does appear to be around patient's baseline. Patient received a liter of IVF and is feeling better. Glucose of 186. Feel patient is stable for discharge with close endocrinology and primary f/u.
She will contact endocrinology today. Return precautions discussed. Patient seen with attending physician.
Chronic conditions affecting care:
Type 2 diabetes
Acute Exacerbation and/or Progression of Chronic Illness:
Acute hypoglycemia
*Pulse Oximetry
Patient hypoxic: no
*EKG
Interpreted by ED Provider?: NA
*Senior Technologist Interpretation
Rate: Senior Technologist- N/A
*Critical Care Note
Total Time (30-74mins, 75-104mins- exclusive of procedures): Not Applicable
ED Attending Note
-
Portions of this chart may have been created with voice recognition software.� Occasional wrong word or��sound alike� substitutions may have occurred due to the inherent limitations of voice recognition software.
Discharge Plan
Departure
Patient Disposition: Home (Routine Discharge)
Date of Disposition: 03/07/24
Time of Disposition: 09:06
Patient with high blood pressure during this ER visit?: No
Condition: Good
Discharge Problem:
Hypoglycemia
Instructions: Diabetes Type 1, Adult (DC), Low Blood Sugar, Adult ED
Prescriptions:
No Action
Tirosint-Amber 175 mcg/mL solution
175 mcg PO DAILY
meloxicam 15 mg Tablet
15 mg PO DAILYPRN PRN (Reason: moderate pain)
therapeutic multivitamin Tablet
1 tab PO DAILY
ibuprofen 200 mg Tablet
400 mg PO BIDPRN PRN (Reason: fever/headache)
insulin lispro [Humalog KwikPen Insulin] 100 unit/mL Insulin Pen
1 sliding scale dose SC AC
vitamin D3-vitamin K2 (MK4) 1,000-100 unit-mcg Tablet
1 tab PO DAILY
insulin glargine-yfgn [Semglee(insulin glarg-yfgn)Pen] 100 unit/mL (3 mL) Insulin Pen
18 unit SC DAILY
Zenpep 10,000-32,000 -42,000 unit Capsule,Delayed Release(Dr/Ec)
2 cap PO AC Qty: 180 0RF
magnesium oxide 500 mg capsule
500 mg PO DAILY Qty: 30 0RF
ondansetron HCl 4 mg tablet
4 mg PO Q8H PRN (Reason: nausea and vomiting) Qty: 20 0RF
Referrals:
NONE,* [Family Provider] -
Activity Restrictions/Additional Instructions:
RETURN TO THE EMERGENCY DEPARTMENT WITH ANY FEVERS, CHEST PAIN, SHORTNESS OF BREATH, HYPOGLYCEMIC EPISODES, SIGNS OF SEVERE DEHYDRATION, OR ANY OTHER CONCERNS
-As discussed- it is very important you call your fur clipper today to discuss your medications and consider decreasing units of your long-acting insulin.
-It is important to stay well-hydrated. You should eat a protein rich diet. Use your medication/insulin as directed
-Follow-up with primary care and endocrinology for further evaluation/management
Monitor your symptoms closely and return to the emergency department with any acute worsening/new symptoms
Interventions
Interventions:
*Risk Screen - Suicide Last Done: 03/07/24 04:07
*General Assessment Last Done: 03/07/24 04:07
*Neglect/Abuse Screening Last Done: 03/07/24 04:07
ED- Fall Risk Assessment Last Done: 03/07/24 06:55
*ED COVID-19 Vaccine History Last Done: 03/07/24 04:07
ED- Neurological Assessment Last Done: 03/07/24 07:09
Discharge Date and Time
Print Language: [id number]
[2024-03-07 04:45] LABS: ALT (SGPT) 23 U/L (0-35); AST (SGOT) 45 U/L (14-36); Albumin 3.4 g/dl (3.5-5.0); Alkaline Phosphatase 36 U/L (38-126); Blood Urea Nitrogen 8 mg/dl (7-17); Calcium 9.6 mg/dl (8.4-10.2); Carbon Dioxide 24 mmol/L (22-30); Chloride 102 mmol/L (98-107); Estimated Creatinine Clearance 82 ml/min; Glucose 235 mg/dl (70-99); Sodium 139 mmol/L (135-145); Total Bilirubin < 0.1 mg/dl (0.2-1.3); Total Protein 6.1 g/dl (6.3-8.2); eGFR > 60.00
[2024-03-07 05:17] LABS: Glucose - Point of Care 204 mg/dl (70-99)
[2024-03-07 05:45] VITALS: BP 97/68
[2024-03-07 06:38] LABS: Glucose - Point of Care 200 mg/dl (70-99)
[2024-03-07 07:07] VITALS: BP 95/67
[2024-03-07] MEDS: NSS 1000 IV (07:30)
[2024-03-07 08:00] VITALS: BP 97/65
[2024-03-07 08:31] LABS: Glucose - Point of Care 186 mg/dl (70-99)
[2024-03-07 09:00] VITALS: BP 99/65
== END 2024-03-07 09:52 | disposition home or self-care (01) ==
LOC: EMR 04:00
PROVIDERS: EMERGENCY PHYSICIAN Emergency Medicine
DX: E10.649 Type 1 diabetes mellitus with hypoglycemia without coma (principal); F17.200 Nicotine dependence, unspecified, uncomplicated; Z79.4 Long term (current) use of insulin
CPT/HCPCS: 99284; 96360; 80053; 82962; 85025

== ENCOUNTER 2024-04-08 12:57 | Inpatient (IN) | payer BC, SELFPAY ==
[2024-04-05] VITALS (11 sets, daily range): BP systolic 82–121; BP diastolic 57–88; BMI 26.7; BMI 25.1
[2024-04-05 00:29] LABS: Glucose - Point of Care 146 mg/dl (70-99)
--- NOTE | 2024-04-05 00:37 | ED.GENMED ---
History of Present Illness
General
Chief Complaint: Blood Sugar Problem
Source: patient
Exam Limitations: none
Time Seen by Provider: 04/05/24 00:31
Nursing documentation reviewed up to this point in time: agreed with
History of Present Illness
History of Present Illness:
Pleasant 48-year-old female, known diabetic, presents with an episode of hypoglycemia. Patient was found by her boyfriend in an altered mental state. EMS was notified. They found her with a blood sugar of 36. They gave her D10. Rechecked her
blood sugar it was 226. Upon arrival to the emergency department, her blood sugar was 146. Patient found to be hypothermic. She is mentating appropriately upon arrival though she has some memory lapse. Denies previous illness.
Past History
Past History
ED Past Medical History: IDDM and Hypothyroidism
ED Past Surgical History: Other
Social History
Tobacco: Smoker
Alcohol: Occasional
Drug: None
Personal:
Living: with family
Employment: Employed
Family History
Family History: Hypertension
Phy Exam
General Physical Exam
General Presentation: mild distress
General age: appears older than age
General Skin: warm
General Habitus: normal
General Mental: alert
Cardiovascular Exam
Cardiovascular Exam: regular rate/rhythm
Pulmonary Exam
Pulmonary Exam: lungs clear and no respiratory distress
Gastrointestinal Exam
Gastrointestinal Exam: normal bowel sounds and non tender
Neurological Exam
Neurological Exam: alert and oriented x3
Musculoskeletal Exam
Musculoskeletal Exam: full ROM
Skin Exam
Skin Exam: normal color and warm/dry
Psychiatric Exam
Psychiatric Exam: normal mood/affect
Course
Orders/Labs/Results
Orders:
Orders
04/05/24 00:36
Lori Hugger [Lori Hugger-Treatment] ONCE
Patient's goal temperature:: 97 F
Additional Instructions:: Temperature and skin assessment per unit protocol
Bedside Glucose- Treatment ONCE
Vital Signs- Treatment ONCE
Frequency: Hourly
04/05/24 00:49
Complete Blood Count/With Diff Urgent
Lactic Acid Urgent
Blood Culture Urgent
MARGO Source: Blood/Venous
Specimen Description:
Blood Culture Urgent
MARGO Source: Blood/Venous
Specimen Description:
04/05/24 01:02
Portable Chest Xray [CR Chest Portable - 1 View] Urgent
Comment:
Reason For Exam: r/o infection
Reason Study Needs to be Portable: Unable to Transport
04/05/24 01:10
B-Hydroxybutyrate Urgent
04/05/24 01:13
Add On- LAB Urgent
Tests Added?: b-hydroxy
04/05/24 01:25
Comprehensive Metabolic Panel Urgent
04/05/24 03:00
Dextrose 5%/0.45%Sodchl 1000ML [D5/0.45%NaCl] 1,000 ml IV 250 mls/hr
04/05/24 03:36
Ondansetron HCl [Zofran] 4 mg PO Q8H PRN
04/05/24 03:37
Admit/Transfer Patient As Directed
Co-Sign Provider:
Level of Care: Observation services
Assign to:: Medical/Surgical
Physician / Group: hospitalist
Diagnosis: hypothermia
Code Status As Directed
Resuscitation Status: Full Code
PRN Pain Medication Management As Directed
May give lesser potent ordered pain med per pt: Yes
preference::
Protocol:: Medication orders for pain may be administered in a
manner that supports deferring to patient preference
when the pt is:
- Requesting an ordered lesser potent pain medication.
Least to most potent pain medications are defined
as: acetaminophen < NSAID < tramadol < opioids
(morphine, oxycodone, hydromorphone).
- Requesting a lesser dose of the same medication IF
ORDERED.
- Requesting a less intrusive route of administration
if both routes are prescribed by the provider (PO <
IV).
04/05/24 04:53
Acetaminophen [Tylenol] 650 mg PO Q4HPRN PRN
Bisacodyl [Dulcolax] 10 mg RECTAL [id number] PRN
Docusate W/Senna [Senokot-S] 1 tablet PO BIDPRN PRN
Ketorolac [Toradol] 10 mg IV Q6HPRN PRN
Polyethylene Glycol Powder [Miralax] 17 grams PO DAILYPRN PRN
04/05/24 04:53
Activity As Directed
Activity Level: With Assistance
Bedside Glucose Monitoring As Directed
Frequency: AC&HS and Q3AM
Vital Signs As Directed
Frequency: Per unit guidelines
Warming [place] [Heating/Cooling [place]] As Directed
Mode:: Automatic
Type of thermoregulation:: Heating
PATIENT'S Goal Temperature:: 96.8 F (36 C)
Comments/Additional Instructions:: Temperature and skin assessment per unit protocol
DX Deep Vein Thrombosis Video Routine
04/05/24 Breakfast
1800 calorie (15 carb) Diabetic
At Your Request: Full Participation
Does patient need a safe tray?: No
Dextrose 5%/0.45%Sodchl 1000ML [D5/0.45%NaCl] 1,000 ml IV 100 mls/hr
Levothyroxine [Synthroid] 175 mcg PO DAILY@0600
04/05/24 07:19
Basic Metabolic Panel IN AM
Complete Blood Count/No Diff IN AM
Cortisol, Random IN AM
Free T3 IN AM
Hemoglobin A1c [Glycohemoglobin (HgbA1c)] IN AM
Magnesium IN AM
T4, Free [Free T4] IN AM
TSH IN AM
04/05/24 07:30
Insulin Aspart Corrective Low [Novolog Flexpen-Low Resistance] See Protocol SC AC
Pancrelipase [Zenpep Delayed Release Capsule] 2 capsule PO AC
04/05/24 08:00
Multivitamin [Theragran] 1 tablet PO DAILY
04/05/24 11:29
Urinalysis Reflex To Culture Urgent
Date Specimen was Collected: 04/05/24
Time Specimen was Collected: :28
04/05/24 18:00
Enoxaparin Sodium [Lovenox] 40 mg SC QPM
Abnormal Lab Results
04/05/24 04/05/24 04/05/24
00:28 00:49 01:25
MCV 78.7 L fL
(81.0-99.0)
MCH 26.2 L pg
(27.0-31.0)
MPV 10.8 H fL
(7.4-10.4)
Eosinophils % 6.3 H %
(0-6)
Carbon Dioxide 16 L mmol/L
(22-30)
Glucose 113 H mg/dl
(70-99)
Lactic Acid 2.1 H mmol/L
(0.7-2.0)
Alkaline Phosphatase 34 L U/L
(38-126)
POC Glucose 146 H mg/dl
(70-99)
04/05/24 04/05/24
01:32 02:06
MCV
MCH
MPV
Eosinophils %
Carbon Dioxide
Glucose
Lactic Acid
Alkaline Phosphatase
POC Glucose 102 H mg/dl 119 H mg/dl
(70-99) (70-99)
04/05/24 00:49
04/05/24 01:25
Vital Signs
Initial and Last Documented VS:
Initial Vital Signs
Temp Pulse Resp BP Pulse Ox
92.4 F L 73 12 121/88 100
04/05/24 00:25 04/05/24 00:25 04/05/24 00:25 04/05/24 00:25 04/05/24 00:25
Last Documented Vital Signs
Temp Pulse Resp BP Pulse Ox
97.8 F 76 16 108/66 96
04/07/24 15:30 04/07/24 15:30 04/07/24 15:30 04/07/24 15:30 04/07/24 15:30
*Critical Care Note
Total Time (30-74mins, 75-104mins- exclusive of procedures): 35
comment:
Critical care statement: A total of 35 minutes of critical care time was provided for this patient. This time is separate from time utilized to perform the aforementioned documented procedures. Aggregate critical care time includes only time
during which I was engaged in work directly related to the patient's care, as described above, whether at the bedside or elsewhere in the Emergency Department.
ED Attending Note
-
Portions of this chart may have been created with voice recognition software.� Occasional wrong word or��sound alike� substitutions may have occurred due to the inherent limitations of voice recognition software.
Discharge Plan
Departure
Patient Disposition: Admit
Date of Disposition: 04/05/24
Time of Disposition: 02:09
Admit to: Telemetry
Presentation/result/management discussed w/ accepting MD/DO: Hospitalist
Discharge Problem:
Persistent hypoglycemia, Hypothermia
Interventions
Interventions:
*Risk Screen - Suicide Last Done: 04/05/24 05:22
*General Assessment Last Done: 04/05/24 00:35
*Neglect/Abuse Screening Last Done: 04/05/24 00:35
ED- Fall Risk Assessment Last Done: 04/05/24 00:46
*ED COVID-19 Vaccine History Last Done: 04/05/24 05:22
*Nursing Disposition Last Done: 04/05/24 04:55
ED- Neurological Assessment Last Done: 04/05/24 00:35
Discharge Date and Time
Discharge Date/Time: 04/05/24 04:56
[2024-04-05 01:05] LABS: % Basophils 0.7 % (0-2); % Eosinophils 6.3 % (0-6); % Immature Granulocytes 0.2 % (0-0.5); % Lymphocytes 45.1 % (20.5-51.1); % Monocytes 4.3 % (1.7-9.3); % Neutrophils 43.4 % (42.2-75.2); Absolute Eosinophils 0.3 10^3/uL (0-0.7); Absolute Lymphocytes 2.4 10^3/uL (1.2-3.4); Absolute Monocytes 0.2 10^3/uL (0.1-0.6); Absolute Neutrophils 2.3 10^3/uL (1.4-6.5); Hematocrit 41.7 % (37.0-47.0); Hemoglobin 13.9 g/dL (12.0-16.0); Mean Corp Hgb Conc. 33.3 g/dL (33.0-37.0); Mean Corpuscular Hgb 26.2 pg (27.0-31.0); Mean Corpuscular Volume 78.7 fL (81.0-99.0); Mean Platelet Volume 10.8 fL (7.4-10.4); Nucleated Red Blood Cells % 0 %; Platelet Count 199 10^3/uL (130-400); Red Cell Dist. Width 12.9 % (11.5-14.5); White Blood Cell Count 5.4 10^3/uL (4.8-10.8)
[2024-04-05 01:31] LABS: Lactic Acid 2.1 mmol/L (0.7-2.0)
[2024-04-05 01:34] LABS: Glucose - Point of Care 102 mg/dl (70-99)
[2024-04-05 01:37] LABS: B-Hydroxybutyrate 0.17 mmol/L (0.02-0.27)
[2024-04-05 01:48] LABS: ALT (SGPT) 14 U/L (0-35); AST (SGOT) 30 U/L (14-36); Alkaline Phosphatase 34 U/L (38-126); Blood Urea Nitrogen 16 mg/dl (7-17); Calcium 9.7 mg/dl (8.4-10.2); Carbon Dioxide 16 mmol/L (22-30); Chloride 103 mmol/L (98-107); Estimated Creatinine Clearance 71 ml/min; Glucose 113 mg/dl (70-99); Potassium 3.9 mmol/L (3.5-5.1); Sodium 137 mmol/L (135-145); Total Bilirubin 0.2 mg/dl (0.2-1.3); eGFR > 60.00
[2024-04-05 02:08] LABS: Glucose - Point of Care 119 mg/dl (70-99)
[2024-04-05] MEDS: D5/0.45%NACL 1000 IV (02:10)
--- NOTE | 2024-04-05 03:24 | HPS.HSE ---
Family Physician
-
Family Physician: * NONE
Chief Complaint
-
Hypoglycemia, hypothermia
History of Present Illness
This is a 48-year-old female with past medical history of hypothyroidism, type I on insulin on glargine and sliding scale lispro who presents to the emergency department with altered mental status in the setting of hypoglycemia.
Patient reports this is her second episode of hypoglycemia that she associates with failure of the Dexcom sensors that she uses. She reported that the glucose was around 135 this morning. She took her usual amount of insulin glargine (18 units).
Glucose was checked throughout the day and it was seen in normal range. Prior to dinner she did a fingerstick glucose that was 160. She gave herself 7 units of lispro and had her usual meal. Thereafter she did not check her blood glucose and then
was found altered by boyfriend. Significant other checked the glucose and it was 36. EMS was called. She was given D10 with slow improvement in her mental status. She is currently alert and oriented but still sleepy. Patient reported she had a
similar episode about 3 weeks ago with failure of the Dexcom sensors. It is unclear to me when exactly this sensors feels because she was able to check her fingerstick glucose prior to her meal and manually it was 160. She is pending evaluation
for her insulin pump. Prior to this episode patient denies any diarrhea, dysuria hematuria, shortness of breath, lightheadedness or dizziness. She was in her usual state of health.
In ED she was found to be hypothermic to 92. Lactic acid was elevated at 2.2. Blood pressure was stable at 90/60 with a pulse of 81. She was satting at 90% on room air. CBC was unremarkable. Chemistries notable for bicarb of 16. Glucose was
113. Repeat fingersticks have been greater than 100 (119 - 146) on D5 normal saline. She required a warming measures to improve her temperature to 94.
Medical History
Past Medical History
Past Medical History: Reports Hypothyroidism, IDDM and Other (Pancreatic insufficiency)
Past Surgical History: Reports None
Social History
Tobacco: Former Smoker
Alcohol: None
Drug: None
Personal: Partner
Living: With Family
Family History
Family History: Not pertinent
Allergies / Home Medications
Allergies reflects when Allergies were last updated in [facility].
Home Medications with original date entered in [facility]
Allergy/Medication List:
Allergies
Allergy/AdvReac Type Severity Reaction Status Date / Time
Sulfa (Sulfonamide Allergy Unknown Verified 04/05/24 00:47
Antibiotics)
vancomycin Allergy Hives Verified 04/05/24 00:47
Home Medications
cholecalciferol (vit D3) 1,000 unit-vitamin K2 (MK4) 100 mcg tablet 1 tab PO DAILY Supplement 02/24/24
ibuprofen 200 mg tablet 400 mg PO BIDPRN PRN fever/headache 02/24/24
insulin glargine-yfgn 100 unit/mL (3 mL) subcutaneous pen (Semglee (insulin glargine-yfgn) Pen) 18 unit SC DAILY Diabetes 02/24/24
insulin lispro 100 unit/mL subcutaneous pen (Humalog KwikPen (U-100) Insulin) 1 sliding scale dose SC AC Diabetes 02/24/24
levothyroxine 175 mcg/mL oral solution (Tirosint-Trev) 175 mcg PO DAILY Thyroid 02/24/24
meloxicam 15 mg tablet 15 mg PO DAILYPRN PRN moderate pain 02/24/24
therapeutic multivitamin 1 tab PO DAILY Supplement 02/24/24
npfzjl-jglhhepd-ephvkto 10,000-32,000-42,000 unit capsule,delayed rel (Zenpep) 2 cap PO AC #180 caps 02/27/24
magnesium oxide 500 mg capsule 500 mg PO DAILY #30 caps 02/27/24
ondansetron HCl 4 mg tablet 4 mg PO Q8H PRN nausea and vomiting #20 tabs 02/27/24
Review of Systems
-
History Source: Patient
Constitutional: Reports No Symptoms
EENT: Reports No Symptoms
Respiratory: Reports No Symptoms
Cardiac: Reports No Symptoms
Abdomen/GI: Reports No Symptoms
: Reports No Symptoms
Musculoskeletal: Reports No Symptoms
Skin: Reports No Symptoms
Neurological: Reports No Symptoms
Endocrine: Reports Other (hypoglycemia)
Hematologic/Lymphatic: Reports No Symptoms
Psych: Reports No Symptoms
Physical Exam
Vital Signs
Vital Signs
Temp Pulse Resp BP Pulse Ox
94.6 F L 85 16 91/66 99
04/05/24 02:55 04/05/24 03:15 04/05/24 03:15 04/05/24 03:00 04/05/24 03:15
Physical Exam
General: Appears Chronically Ill
HEENT: NormoCephalic, Anicteric, Moist mucous membranes and Atraumatic
Cardiac: S1/S2 and Regular Rhythm
Breast: Deferred by me
GI: Soft, Non Tender, Non Distended and Normal Bowel Sounds
Rectal: Deferred by Provider
Genito-urinary: Deferred by me
Musculoskeletal: No Clubbing, No Cyanosis and No Edema
Neuro: AO x 3
Hematologic/Lymphatic: No Lymphadenopathy
Psych: Calm
Laboratory Results
-
04/05/24 00:49
04/05/24 01:25
Laboratory Results
Lactic Acid 2.1 mmol/L (0.7-2.0) H 04/05/24 00:49
Total Bilirubin 0.2 mg/dl (0.2-1.3) 04/05/24 01:25
AST 30 U/L (14-36) 04/05/24 01:25
ALT 14 U/L (0-35) 04/05/24 01:25
Alkaline Phosphatase 34 U/L (38-126) L 04/05/24 01:25
Data Reviewed
-
Lab Data: Labs Reviewed by me
Old Records: Reviewed
Impression/Plan
-
IMPRESSION:
Hypoglycemia episode to 36 at home. Now hypothermic requiring warming measures
PLAN:
1. Hypoglycemia - Recurrent episode in last 3 weeks. Failure of sensor per patient. Likely brittle diabetes or late hypoglycemia from daily lantus. Blood glucose now 110 on D5 NS
- admit to med-surg/obs
- check glucose q 6 hours and achs
- holding lantus, insulin sliding scale for now, restart lantus with am meals if bg has increased to > 100 of glucose gtt.
- check a1c in am
- continue d5 1/2NS at 100 ml/hr for now, stop if BG > 150.
2. Hypothermia - No signs of acute infection
- u/a, xray pending
- check tsh and free t4/t3
- am cortisol
- warming measures
3. Hypothyroid
- continue home Tirosint-trev 175 mcg
4. Pancreatic insufficiency
- zenpep 1 caps po ac
- prn ondansetrol
DVT PPX - lovenox sq
Code Status - full code
[2024-04-05 03:51] LABS: Glucose - Point of Care 228 mg/dl (70-99)
[2024-04-05 04:55] LABS: Glucose - Point of Care 276 mg/dl (70-99)
[2024-04-05] MEDS: SYNTHROID 175 MCG PO (05:20)
[2024-04-05 06:32] LABS: Glucose - Point of Care 200 mg/dl (70-99)
[2024-04-05 07:24] LABS: Glucose - Point of Care 198 mg/dl (70-99)
[2024-04-05 07:42] LABS: Hematocrit 38.8 % (37.0-47.0); Hemoglobin 13.2 g/dL (12.0-16.0); Mean Corpuscular Hgb 26.1 pg (27.0-31.0); Mean Corpuscular Volume 76.8 fL (81.0-99.0); Mean Platelet Volume 11.3 fL (7.4-10.4); Platelet Count 186 10^3/uL (130-400); Red Blood Cell Count 5.05 10^6/uL (4.20-5.40); Red Cell Dist. Width 12.6 % (11.5-14.5); White Blood Cell Count 4.6 10^3/uL (4.8-10.8)
[2024-04-05 07:44] LABS: Lactic Acid 1.1 mmol/L (0.7-2.0)
[2024-04-05] MEDS: THERAGRAN 1 TABLET PO (08:04)
[2024-04-05] MEDS: ZENPEP DELAYED RELEASE CAPSULE PO ×2 (08:05→08:22)
[2024-04-05] MEDS: NOVOLOG FLEXPEN-LOW RESISTANCE 1 UNITS SC (08:18)
[2024-04-05] MEDS: TYLENOL 650 MG PO (08:18)
--- NOTE | 2024-04-05 08:32 | W.PN.HOSP.TC ---
Addendum entered and electronically signed by Riya Luna MD 04/05/24 16:58:
I saw and evaluated the patient independently. I reviewed the resident�s note and agree with findings and plan as documented by Dr. Adam.
GENERAL: well developed, well nourished, female in no apparent distress--slow deliberate speech
HEENT: NC/AT
HEART: regular rate and rhythm, +S1, +S2
LUNGS : clear to auscultation bilaterally
ABDOM: soft, nontender, nondistended, + bowel sounds
EXT: no cyanosis, clubbing, or edema
NEUROLOGIC: grossly intact
Symptomatic hypoglycemia in pt with Type 1 Diabetes, insulin dependent--HGB A1C 8.4--does follow with endocrine--apprec [employer] DM--cont SSI and need to restart long acting insulin--unclear if Dexcom sensor is functioning properly
Hypothermia on admission--92.4 required bear hugger--no signs of infection
Hypothyroidism- At home takes tirosint 175 mcg daily (liquid med)- ran out 2 weeks ago-- TSH 60.1; free T4 0.41 L, free T3 1.89 L-- Continue synthroid
Pancreatic insufficiency-- Continue zenpep 1 caps po ac-- Zofran prn
unifying diagnosis here is likely adrenal insufficiency (hypoglycemic, hypothermic, hypothyroid, hyponatremic)--cortisol < 0.2--will do cosyntropin STIM test in AM and start meds if positive
Hypomagnesemia-- Continue home magnesium supplementation
Code status: Full
DVT proph -- lovenox
Original Note:
Today's Communication/Plan
-
diabetes management consult, ACTH stimulation test
Assessment / Plan
Assessment / Plan
48yo F with PMH type 1 diabetes insulin dependent, pancreatic insufficiency, hypothyroidism who presented to ED 04/05/24 for episode of symptomatic hypoglycemia at home.
Symptomatic hypoglycemia
Type 1 Diabetes, insulin dependent
A1C 8.4
- Follows with Dr. Modesta Angel ([facility]), last appointment ~Jan, next appointment ~Rohan
- Home insulin regimen includes 18u glargine and sliding scale
- In ED basal insulin held, D5 and sliding scale initiated
- Now on diabetic diet and sliding scale insulin, recent BG 200-279
- Will consult diabetes LIQUOR TESTER for management.
Hypothermia on admission
- Temp on admission 92.4, required bearhugger rewarming
- No signs of infection, chest xray negative for pneumonia
- Temp this AM improved to 98.0 without rewarming measures
Hypothyroidism
- At home takes tirosint 175 mcg daily- ran out 2 weeks ago
- TSH 60.1; free T4 0.41 L, free T3 1.89 L
- Continue synthroid
Pancreatic insufficiency
- Continue zenpep 1 caps po ac
- Zofran prn
Concern for adrenal insufficiency
- Hyponatremia, hypothermia, weakness
- AM cortisol < 0.2
- Will check ACTH stimulation test
Hypomagnesemia
- Continue home magnesium supplementation
Code status: Full
VTE ppx: lovenox
Diet: Diabetic
Dispo planning: Anticipate dc home, timing tbd
Anticipated Discharge: 24 - 48 hours
Subjective/Interval History
-
Date of Service: April 05, 2024
Admitted to hospital overnight for symptomatic hypoglycemia. This morning complains of fatigue and poor sleep. Denies lightheadedness, dizziness, chest pain, shortness of breath, nausea, vomiting, abdominal pain, diarrhea, constipation. Last BM
yesterday AM, no black or bloody stools. Tolerating PO diet.
Objective Data
-
Labs:
Laboratory Results
04/05/24 04/05/24 04/05/24
00:49 01:10 01:25
WBC 5.4
Hgb 13.9
Hct 41.7
Plt Count 199
Sodium Cancelled Cancelled 137
Potassium Cancelled Cancelled 3.9
Chloride Cancelled Cancelled 103
Carbon Dioxide Cancelled Cancelled 16 L
BUN Cancelled Cancelled 16
Creatinine Cancelled Cancelled 0.8
Glucose Cancelled Cancelled 113 H
Calcium Cancelled Cancelled 9.7
Total Bilirubin Cancelled Cancelled 0.2
AST Cancelled Cancelled 30
ALT Cancelled Cancelled 14
Alkaline Phosphatase Cancelled Cancelled 34 L
04/05/24
07:19
WBC 4.6 L
Hgb 13.2
Hct 38.8
Plt Count 186
Sodium Pending
Potassium Pending
Chloride Pending
Carbon Dioxide Pending
BUN Pending
Creatinine Pending
Glucose Pending
Calcium Pending
Total Bilirubin
AST
ALT
Alkaline Phosphatase
Vital Signs:
Vital Signs
Temp Pulse Resp BP Pulse Ox
98 F 95 18 83/58 100
04/05/24 07:30 04/05/24 07:30 04/05/24 07:30 04/05/24 07:30 04/05/24 07:30
Review of Systems
-
History Source: Patient
All other systems: Reviewed and negative
Physical Exam
-
General: Well Developed, Well Nourished, No Apparent Distress, Comfortable and Conversant
HEENT: Normocephalic and Atraumatic
Respiratory: Clear to Auscultation and Non Labored Respirations; Negative Wheezes
Cardiac: Regular Rhythm and S1/S2
GI: Soft, Nontender, Nondistended and Normal Bowel Sounds
Musculoskeletal: No Edema
Skin: Warm (appropriately warm and well perfused) and Dry
Neuro: Awake, Alert, Oriented, AO x 3 and Nonfocal/Grossly Intact
Psych: Calm and Intact Judgement/Insight
Data Reviewed
-
Diagnostic Radiology: Image personally visualized and interpreted and Report Reviewed by me
Labs: Labs Reviewed by me and Discussed with Physician
[2024-04-05 09:13] LABS: Blood Urea Nitrogen 15 mg/dl (7-17); Calcium 9.4 mg/dl (8.4-10.2); Carbon Dioxide 25 mmol/L (22-30); Chloride 97 mmol/L (98-107); Estimated Creatinine Clearance 62 ml/min; Glucose 192 mg/dl (70-99); Magnesium 1.4 mg/dl (1.6-2.3); Potassium 4.6 mmol/L (3.5-5.1); Sodium 133 mmol/L (135-145); eGFR > 60.00
[2024-04-05 09:30] LABS: Free T3 1.89 pg/ml (2.77-5.27); Free T4 0.41 ng/dl (0.78-2.19)
[2024-04-05 09:45] LABS: Cortisol, Random < 0.2 ug/dl
[2024-04-05 10:30] LABS: Glycohemoglobin (HgbA1c) 8.4 % (4.0-5.6)
--- NOTE | 2024-04-05 10:41 | PTCARENOTE ---
Patient with low BP. MD made aware. Encouragement given to drink fluids and fluids of choice provided to patient. Denies dizziness or lightheadedness. Normal temperature. Lactic this morning 1.1. Patient given tylenol for headache with relief.
[2024-04-05 11:13] LABS: Beta HCG Quantitative < 2.39 mIU/ml
--- NOTE | 2024-04-05 11:25 | PN.DE.MGMTRT ---
Insulin Management
- -
04/05/2024: Diabetes Management Consult
48 year old female with PMH: Hypothyroidism, T1DM since 26 years old, and gastric bypass- Serina-en-Y at [place] in 2017-->Pancreatic insufficiency.
Was taking Semglee 18 units daily in AM and lispro SS prior to admission. Pt presented to the ED with AMS changes in setting of hypoglycemia.
Uses CGM- Dexcom G7 and is in the process of getting on an insulin pump. [facility]inely [facility]- Dr Jeanne Byers [place].
Pt is awake, A/O x3, sitting up @edge of bed, says she has not eaten much and is in the process of ordering lunch, able to discuss diabetes mgt.
States her basal insulin dose was recently reduced to 18 units from 22. She does not recall what precipitated the episode of hypoglycemia but recalls her finger stick blood sugar was >200 prior to taking the 7 units of her short acting insulin.
States she follows a SS at meal times and usually takes 6-7 units AC,
Listed below is the SS she follows.
121- 150 4 units
151- 200 5 units
201- 250 7 units
251- 300 9 units
> 300 11 units
Upon review of her CGM, data analysis indicates that she is 34% in range and 63% above range with limited data regarding episodes of hypoglycemia
Her hourly blood sugars have been stable since admission, 102 to 276. FBG 192(V), 198 POC this AM.
Pre-lunch blood sugar is 113. Will resume her OP insulin- give Lantus 18 units and NovoLog 4 units NOW
Resume Lantus 18 units daily in AM and NovoLog 6 units AC. Cont low corrective with meals
Encouraged pt to call the [employer]- [employer] to discuss challenges with her sensor.
Discussed plan of care with pt and Nurse.
Diabetes History
- -
Type of Diabetes: 1
Pre-Admission Diabetes Regimen
04/05/24 04/05/2424
00:49 01:10 01:25
Creatinine Cancelled Cancelled 0.8
04/05/24
07:19
Creatinine 0.8
Lab Results
Hemoglobin A1c 8.4 % (4.0-5.6) H 04/05/24 07:19
Insulin Pump Settings
IP Diabetes Regimen
04/05/24 04/05/24 04/05/24
00:28 00:49 01:10
Glucose Cancelled Cancelled
POC Glucose 146 H
04/05/24 04/05/24 04/05/24
01:25 01:32 02:06
Glucose 113 H
POC Glucose 102 H 119 H
04/05/24 04/05/24 04/05/24
03:49 04:53 06:31
Glucose
POC Glucose 228 H 276 H 200 H
04/05/24 04/05/24
07:19 07:22
Glucose 192 H
POC Glucose 198 H
Patient Education
[2024-04-05 11:53] LABS: Glucose - Point of Care 113 mg/dl (70-99)
[2024-04-05] MEDS: NOVOLOG FLEXPEN-LOW RESISTANCE SC (11:59)
[2024-04-05] MEDS: ZENPEP DELAYED RELEASE CAPSULE 2 CAPSULE PO ×2 (12:01→17:32)
[2024-04-05] MEDS: MAGNESIUM OXIDE 500 MG PO (12:01)
[2024-04-05 12:04] LABS: Urine Albumin Negative (Neg - Trace); Urine Bilirubin Negative (Negative); Urine Character Clear (Clear); Urine Color Yellow; Urine Glucose Negative (Negative); Urine Ketone Negative (Negative); Urine Leukocyte 1+ (Negative); Urine Nitrite Negative (Negative); Urine Occult Blood Negative (Negative); Urine Specific Gravity 1.025 (<1.030); Urine Urobilinogen Negative (Neg - 1+)
[2024-04-05 12:32] LABS: Urine Squamous Cell 16-20 /LPF (Few)
[2024-04-05 12:33] LABS: Urine Bacteria Few (Negative); Urine Red Blood Cell 0-2 /HPF (0-2)
[2024-04-05] MEDS: LANTUS 0.18 UNITS SC (12:53)
[2024-04-05] MEDS: NOVOLOG FLEXPEN 6 UNITS SC (12:53)
--- NOTE | 2024-04-05 16:10 | CM ---
Patient seen at bedside with physicians. Patient stated that she livves with her botyfriend in an apartment and was recently here at . Patient here as OBS and form signed and placed on chart. Patient stated that she has no PCP and was given the
information about the residency clinic. Patient uses the [facility] in [place]. Patient plan is for discharge home with no needs. CM will continue to follow for discharge planning needs.
Plan;home with VN vs home with no needs
[2024-04-05 17:21] LABS: Glucose - Point of Care 239 mg/dl (70-99)
[2024-04-05] MEDS: LOVENOX 40 MG SC (17:32)
[2024-04-05] MEDS: NOVOLOG FLEXPEN-LOW RESISTANCE 2 UNITS SC (17:32)
[2024-04-05] MEDS: NOVOLOG FLEXPEN 4 UNITS SC (17:39)
[2024-04-05 21:36] LABS: Glucose - Point of Care 176 mg/dl (70-99)
[2024-04-06] MEDS: SYNTHROID 175 MCG PO (05:10)
[2024-04-06 06:30] LABS: Glucose - Point of Care 50 mg/dl (70-99)
[2024-04-06 06:33] LABS: Hematocrit 40.7 % (37.0-47.0); Hemoglobin 13.4 g/dL (12.0-16.0); Mean Corp Hgb Conc. 32.9 g/dL (33.0-37.0); Mean Corpuscular Hgb 25.9 pg (27.0-31.0); Mean Corpuscular Volume 78.6 fL (81.0-99.0); Platelet Count 184 10^3/uL (130-400); Red Blood Cell Count 5.18 10^6/uL (4.20-5.40); Red Cell Dist. Width 12.9 % (11.5-14.5); White Blood Cell Count 5.1 10^3/uL (4.8-10.8)
[2024-04-06 06:58] LABS: Glucose - Point of Care 105 mg/dl (70-99)
--- NOTE | 2024-04-06 07:03 | PTCARENOTE ---
Patient's blood glucose was 50 at 0630. Patient asymptomatic. Patient given juice and crackers. Blood glucose rechecked 15 minutes after and is 105. Will continue to monitor. Report given to day shift RN.
[2024-04-06 07:25] LABS: Blood Urea Nitrogen 15 mg/dl (7-17); Carbon Dioxide 25 mmol/L (22-30); Chloride 100 mmol/L (98-107); Estimated Creatinine Clearance 62 ml/min; Glucose 44 mg/dl (70-99); Magnesium 1.5 mg/dl (1.6-2.3); Potassium 4.3 mmol/L (3.5-5.1); Sodium 135 mmol/L (135-145); eGFR > 60.00
[2024-04-06 07:55] VITALS: BP 86/59
[2024-04-06] MEDS: NSS (PRESERVATIVE FREE) 1 ML IV (08:47)
[2024-04-06] MEDS: CORTROSYN 0.25 MG IV (08:48)
--- NOTE | 2024-04-06 08:56 | W.PN.HOSP.TC ---
Addendum entered and electronically signed by Riya Luna MD 04/06/24 13:16:
I saw and evaluated the patient independently. I reviewed the resident�s note and agree with findings and plan as documented by Dr. Adam.
GENERAL: well developed, well nourished, female in no apparent distress--slow deliberate speech
HEENT: NC/AT
HEART: regular rate and rhythm, +S1, +S2
LUNGS : clear to auscultation bilaterally
ABDOM: soft, nontender, nondistended, + bowel sounds
EXT: no cyanosis, clubbing, or edema
NEUROLOGIC: grossly intact
Symptomatic hypoglycemia in pt with Type 1 Diabetes, insulin dependent--HGB A1C 8.4--does follow with endocrine--apprec FRAME COVERER DM--cont SSI and need to restart long acting insulin--unclear if Dexcom sensor is functioning properly
Hypothermia on admission--92.4 required bear hugger--no signs of infection
Hypothyroidism- At home takes Tirosint 175 mcg daily (liquid med)- ran out 2 weeks ago-- TSH 60.1; free T4 0.41 L, free T3 1.89 L-- Continue synthroid
Pancreatic insufficiency-- Continue zenpep 1 caps po ac-- Zofran prn
unifying diagnosis here is adrenal insufficiency (hypoglycemic, hypothermic, hypothyroid, hyponatremic)--cortisol < 0.2 at baseline with NO response from ACTH stim test--start hydrocortisone 20mg AM, 10 mg PM with fludrocortisone 0.1 mg daily
Hypomagnesemia-- Continue home magnesium supplementation
Code status: Full
DVT proph -- lovenox
anticipate d/c tomorrow if sugars not low
Original Note:
Today's Communication/Plan
-
ACTH stimulation test this AM showed adrenal insufficiency- start hydrocortisone and fludrocortisone, supplement magnesium
Assessment / Plan
Assessment / Plan
48yo F with PMH type 1 diabetes insulin dependent, pancreatic insufficiency, hypothyroidism who presented to ED 04/05/24 for episode of symptomatic hypoglycemia at home.
Adrenal insufficiency
- Diagnosis accounts for patient's hyponatremia, hypothermia, weakness, and hypoglycemia
- 04/05/24 AM cortisol < 0.2
- 04/06/24 baseline cortisol <0.2, and after stim test <0.2
- Will start hydrocortisone 20mg daily AM, hydrocortisone 10mg daily PM, fludrocortisone 0.1mg daily
- Reviewed results and treatment with patient. Recommend calling [facility] technical lead senior developer Monday to move next appointment sooner.
- Continue to monitor BG inpatient, will reassess for discharge tomorrow.
Symptomatic hypoglycemia
Type 1 Diabetes, insulin dependent
A1C 8.4
- Follows with Dr. Modesta Angel ([facility]), last appointment ~Jan, next appointment ~May
- Home insulin regimen includes 18u glargine and sliding scale
- special educator consulted for insulin management, appreciate recs
- BG this AM low 44 --> improved to 105
Hypothermia on admission
- Temp on admission 92.4, required bearhugger rewarming
- No signs of infection, chest xray negative for pneumonia
- Temps improved and remains euthermic, no further need for rewarming measures
Hypothyroidism
- At home takes tirosint 175 mcg daily- ran out 2 weeks ago
- TSH 60.1; free T4 0.41 L, free T3 1.89 L
- Continue synthroid
Pancreatic insufficiency
- Continue zenpep 1 caps po ac
- Zofran prn
Hypomagnesemia
- Continue home magnesium supplementation
- Mag today 1.5, will give 2g IV mag supplementation
- Recheck mag level tomorrow
Code status: Full
VTE ppx: ambulation as tolerated, lovenox
Diet: Diabetic
Dispo planning: Anticipate dc home, likely tomorrow pending clinical course
Anticipated Discharge: Within 24 hours
Subjective/Interval History
-
Date of Service: April 06, 2024
No acute events overnight. No complaints. Denies lightheadedness, dizziness, chest pain, shortness of breath, nausea, vomiting, diarrhea, constipation. Tolerating PO diet. Ambulating as tolerated.
Objective Data
-
Labs:
Laboratory Results
04/06/24
05:48
WBC 5.1
Hgb 13.4
Hct 40.7
Plt Count 184
Sodium 135
Potassium 4.3
Chloride 100
Carbon Dioxide 25
BUN 15
Creatinine 0.8
Glucose 44 L*
Calcium 10.0
Vital Signs:
Vital Signs
Temp Pulse Resp BP Pulse Ox
98.5 F 82 18 86/59 100
04/06/24 07:55 04/06/24 07:55 04/06/24 07:55 04/06/24 07:55 04/06/24 07:55
I&O
04/05/24 04/06/24 04/07/24
06:59 06:59 06:59
Intake Total 960 / 960
Balance 960 / 960
Review of Systems
-
History Source: Patient
All other systems: Reviewed and negative
Physical Exam
-
General: Well Developed, Well Nourished, No Apparent Distress, Comfortable and Conversant
HEENT: Normocephalic and Atraumatic
Respiratory: Clear to Auscultation and Non Labored Respirations; Negative Wheezes
Cardiac: Regular Rhythm and S1/S2
GI: Soft, Nontender, Nondistended and Normal Bowel Sounds
Musculoskeletal: No Edema
Skin: Warm (appropriately warm and well perfused) and Dry
Neuro: Awake, Alert, Oriented, AO x 3 and Nonfocal/Grossly Intact
Psych: Calm and Intact Judgement/Insight
Data Reviewed
-
Diagnostic Radiology: Image personally visualized and interpreted and Report Reviewed by me
Labs: Labs Reviewed by me and Discussed with Physician
[2024-04-06] MEDS: ZENPEP DELAYED RELEASE CAPSULE 2 CAPSULE PO ×3 (09:02→17:34)
[2024-04-06] MEDS: MAGNESIUM OXIDE 500 MG PO (09:03)
[2024-04-06] MEDS: LANTUS 0.12 UNITS SC (09:04)
[2024-04-06] MEDS: THERAGRAN 1 TABLET PO (09:04)
[2024-04-06 09:08] LABS: Glucose - Point of Care 129 mg/dl (70-99)
[2024-04-06] MEDS: NOVOLOG FLEXPEN-LOW RESISTANCE SC ×2 (09:09→11:58)
[2024-04-06 09:16] LABS: ACTH Stim Cortisol 0 Min < 0.2 ug/dl
[2024-04-06 10:08] LABS: Glucose - Point of Care 90 mg/dl (70-99)
[2024-04-06 10:21] LABS: ACTH Stim Cortisol 30 Min < 0.2 ug/dl
[2024-04-06] MEDS: NOVOLOG FLEXPEN 4 UNITS SC (10:23)
[2024-04-06 11:09] LABS: ACTH Stim Cortisol 60 Min < 0.2 ug/dl
[2024-04-06 11:33] LABS: Glucose - Point of Care 147 mg/dl (70-99)
[2024-04-06] MEDS: HYDROCORTONE/CORTEF 20 MG PO (12:07)
[2024-04-06] MEDS: MAGNESIUM SULFATE 50 IV (12:07)
[2024-04-06] MEDS: FLORINEF 0.1 MG PO (12:09)
[2024-04-06] MEDS: ZOFRAN 4 MG PO (12:09)
--- NOTE | 2024-04-06 13:04 | VATNOTE ---
Cortrosyn stimulation study completed at 0955 according to hospital policy.
[2024-04-06 13:12] LABS: Glucose - Point of Care 56 mg/dl (70-99)
[2024-04-06] MEDS: NOVOLOG FLEXPEN SC (13:16)
--- NOTE | 2024-04-06 13:18 | PTCARENOTE ---
manager concrete Maya Benjamin made aware of 6:30 am Blood glucose. Verbal taken to change Lantus to 12 units daily.
Confirmed dose of 4 units of Novolog with meals is ongoing.
Lunch accu check is 56. Juice given. manager concrete made aware. Holding Novolog coverage for lunch. Plan of care on going.
[2024-04-06 13:29] LABS: Glucose - Point of Care 73 mg/dl (70-99)
[2024-04-06 15:30] LABS: Glucose - Point of Care 240 mg/dl (70-99)
[2024-04-06 15:57] VITALS: BP 93/67
[2024-04-06 17:23] LABS: Glucose - Point of Care 229 mg/dl (70-99)
[2024-04-06] MEDS: LOVENOX 40 MG SC (17:34)
[2024-04-06] MEDS: NOVOLOG FLEXPEN-LOW RESISTANCE 2 UNITS SC (17:35)
[2024-04-06] MEDS: CORTEF 10 MG PO (17:39)
[2024-04-06 21:39] LABS: Glucose - Point of Care 465 mg/dl (70-99)
[2024-04-06 22:22] LABS: Glucose 521 mg/dl (70-99)
[2024-04-06] MEDS: NOVOLOG FLEXPEN 10 UNITS SC (22:44)
[2024-04-06 23:23] VITALS: BP 100/69
[2024-04-06 23:55] LABS: Glucose - Point of Care 459 mg/dl (70-99)
[2024-04-07 01:05] LABS: Glucose - Point of Care 391 mg/dl (70-99)
[2024-04-07] MEDS: NOVOLOG FLEXPEN 5 UNITS SC (01:38)
[2024-04-07 03:55] LABS: Glucose - Point of Care 103 mg/dl (70-99)
--- NOTE | 2024-04-07 03:59 | PTCARENOTE ---
Patient's blood glucose lab draw [phone] at 2155. DATA CODER OPERATOR notified. Patient given 10 units Novolog insulin x1. BG rechecked two hours later and was 391. DATA CODER OPERATOR notified. Patient given 5 units Novolog insulin x1. BG rechecked two hours later and was 103. DATA CODER OPERATOR
notified. Will continue to monitor.
[2024-04-07] MEDS: SYNTHROID 175 MCG PO (05:47)
[2024-04-07 06:01] LABS: Glucose - Point of Care 125 mg/dl (70-99)
[2024-04-07 06:14] LABS: Hematocrit 36.2 % (37.0-47.0); Hemoglobin 12.2 g/dL (12.0-16.0); Mean Corp Hgb Conc. 33.7 g/dL (33.0-37.0); Mean Corpuscular Hgb 26.2 pg (27.0-31.0); Mean Corpuscular Volume 77.8 fL (81.0-99.0); Mean Platelet Volume 10.9 fL (7.4-10.4); Platelet Count 192 10^3/uL (130-400); Red Blood Cell Count 4.65 10^6/uL (4.20-5.40); Red Cell Dist. Width 12.9 % (11.5-14.5); White Blood Cell Count 7.9 10^3/uL (4.8-10.8)
[2024-04-07 06:34] LABS: Blood Urea Nitrogen 17 mg/dl (7-17); Calcium 9.9 mg/dl (8.4-10.2); Carbon Dioxide 27 mmol/L (22-30); Chloride 98 mmol/L (98-107); Estimated Creatinine Clearance 62 ml/min; Glucose 140 mg/dl (70-99); Magnesium 1.9 mg/dl (1.6-2.3); Sodium 135 mmol/L (135-145); eGFR > 60.00
[2024-04-07 07:42] LABS: Glucose - Point of Care 107 mg/dl (70-99)
[2024-04-07 07:55] VITALS: BP 104/57
--- NOTE | 2024-04-07 08:00 | W.PN.HOSP.TC ---
Addendum entered and electronically signed by Nel Adam MD, Resident 04/07/24 17:18:
POC BG 541. Will give 15u lantus now. Updated sliding scale insulin to high resistance.
Addendum entered and electronically signed by Riya Luna MD 04/07/24 12:48:
I saw and evaluated the patient independently. I reviewed the resident�s note and agree with findings and plan as documented by Dr. Adam.
GENERAL: well developed, well nourished, female in no apparent distress--slow deliberate speech
HEENT: NC/AT
HEART: regular rate and rhythm, +S1, +S2
LUNGS : clear to auscultation bilaterally
ABDOM: soft, nontender, nondistended, + bowel sounds
EXT: no cyanosis, clubbing, or edema
NEUROLOGIC: grossly intact
unifying diagnosis here is adrenal insufficiency (hypoglycemic, hypothermic, hypothyroid, hyponatremic)--cortisol < 0.2 at baseline with NO response from ACTH stim test--started hydrocortisone 20mg AM, 10 mg PM with fludrocortisone 0.1 mg daily
Symptomatic hypoglycemia in pt with Type 1 Diabetes, insulin dependent--HGB A1C 8.4--does follow with endocrine--apprec DECKHAND FISHING VESSEL DM--cont SSI and need to restart long acting insulin--unclear if Dexcom sensor is functioning properly--since started on
hydrocortisone AND lantus dropped from 18u to 12u, sugars running high--gave extra 3 units lantus now and increased to 15u starting tomorrow
Hypothermia on admission--92.4 required bear hugger--no signs of infection--resolved
Hypothyroidism- At home takes Tirosint 175 mcg daily (liquid med)- ran out 2 weeks ago-- TSH 60.1; free T4 0.41 L, free T3 1.89 L-- Continue synthroid without change--may improve with treatment of AI
Pancreatic insufficiency-- Continue zenpep 1 caps po ac-- Zofran prn
Hypomagnesemia-- Continue home magnesium supplementation
Code status: Full
DVT proph -- lovenox
anticipate d/c tomorrow if sugars stabilize
Original Note:
Today's Communication/Plan
-
insulin adjustment ongoing, continue to monitor BG
Assessment / Plan
Assessment / Plan
48yo F with PMH type 1 diabetes insulin dependent, pancreatic insufficiency, hypothyroidism who presented to ED 04/05/24 for episode of symptomatic hypoglycemia at home.
Adrenal insufficiency
- Diagnosis accounts for patient's hyponatremia, hypothermia, weakness, and hypoglycemia
- 04/05/24 AM cortisol < 0.2
- 04/06/24 baseline cortisol <0.2, and after stim test <0.2
- Continue hydrocortisone 20mg daily AM, hydrocortisone 10mg daily PM, fludrocortisone 0.1mg daily (started 04/06)
- Reviewed results and treatment with patient. Recommend calling wet roller Monday to move next appointment sooner.
- Continue to monitor BG inpatient- see below
Symptomatic hypoglycemia
Type 1 Diabetes, insulin dependent
A1C 8.4
- Follows with Dr. Modesta Angel ([facility]), last appointment ~Jan, next appointment ~May
- Home insulin regimen includes 18u glargine and sliding scale
- asthma educator consulted for insulin management, appreciate recs
- BG yesterday AM low at 44. BG yesterday evening elevated, required additional 15 units novolog --> improved to 103
- Given lability of BG, religious educator actively adjusting basal insulin dose, and starting steroid replacement yesterday, will continue to monitor BG inpatient. If BG stabilize on new insulin regimen, will reassess for discharge tomorrow.
Hypothermia on admission
- Temp on admission 92.4, required bearhugger rewarming
- No signs of infection, chest xray negative for pneumonia
- Temps improved and remains euthermic, no further need for rewarming measures
Hypothyroidism
- At home takes tirosint 175 mcg daily- ran out 2 weeks ago
- TSH 60.1; free T4 0.41 L, free T3 1.89 L
- Continue synthroid
Pancreatic insufficiency
- Continue zenpep 1 caps po ac
- Zofran prn
Hypomagnesemia
- Continue home magnesium supplementation
- S/p 2g IV mag supplementation --> Mag today 1.9
- Recheck mag level tomorrow
Code status: Full
VTE ppx: ambulation as tolerated, lovenox
Diet: Diabetic
Dispo planning: Anticipate dc home, likely tomorrow pending clinical course
Anticipated Discharge: Within 24 hours
Subjective/Interval History
-
Date of Service: April 07, 2024
No acute events overnight. No complaints, though concerned for her blood sugars. Denies lightheadedness, dizziness, chest pain, shortness of breath, nausea, vomiting, abdominal pain, diarrhea, constipation. Tolerating PO diet. Ambulating as
tolerated.
Objective Data
-
Labs:
Laboratory Results
04/06/24 04/07/24
21:55 05:51
WBC 7.9
Hgb 12.2
Hct 36.2 L
Plt Count 192
Sodium 135
Potassium 5.0
Chloride 98
Carbon Dioxide 27
BUN 17
Creatinine 0.8
Glucose 521 H* 140 H
Calcium 9.9
Vital Signs:
Vital Signs
Temp Pulse Resp BP Pulse Ox
98.4 F 87 16 100/69 97
04/06/24 23:23 04/06/24 23:23 04/06/24 23:23 04/06/24 23:23 04/06/24 23:23
I&O
04/06/24 04/07/24 04/08/24
06:59 06:59 06:59
Intake Total 960 / 960 1440 / 1440
Balance 960 / 960 1440 / 1440
Review of Systems
-
History Source: Patient
All other systems: Reviewed and negative
Physical Exam
-
General: Well Developed, Well Nourished, No Apparent Distress, Comfortable and Conversant
HEENT: Normocephalic and Atraumatic
Respiratory: Clear to Auscultation and Non Labored Respirations; Negative Wheezes
Cardiac: Regular Rhythm and S1/S2
GI: Soft, Nontender, Nondistended and Normal Bowel Sounds
Musculoskeletal: No Edema
Skin: Warm (appropriately warm and well perfused) and Dry
Neuro: Awake, Alert, Oriented, AO x 3 and Nonfocal/Grossly Intact
Psych: Calm and Intact Judgement/Insight
Data Reviewed
-
Diagnostic Radiology: Image personally visualized and interpreted and Report Reviewed by me
Labs: Labs Reviewed by me and Discussed with Physician
[2024-04-07] MEDS: FLORINEF 0.1 MG PO (08:45)
[2024-04-07] MEDS: MAGNESIUM OXIDE 500 MG PO (08:45)
[2024-04-07] MEDS: THERAGRAN 1 TABLET PO (08:45)
[2024-04-07] MEDS: HYDROCORTONE/CORTEF 20 MG PO (08:45)
[2024-04-07] MEDS: ZENPEP DELAYED RELEASE CAPSULE 2 CAPSULE PO ×3 (08:46→17:13)
[2024-04-07] MEDS: NOVOLOG FLEXPEN-LOW RESISTANCE SC ×2 (08:47→17:15)
[2024-04-07] MEDS: LANTUS 0.12 UNITS SC (08:48)
[2024-04-07 11:53] LABS: Glucose - Point of Care 206 mg/dl (70-99)
[2024-04-07] MEDS: NOVOLOG FLEXPEN-LOW RESISTANCE 2 UNITS SC (12:42)
[2024-04-07] MEDS: LANTUS 0.03 UNITS SC (13:02)
[2024-04-07 15:29] LABS: Glucose - Point of Care 418 mg/dl (70-99)
[2024-04-07 15:30] VITALS: BP 108/66
--- NOTE | 2024-04-07 15:38 | CM ---
CM following re: d/c planning.
Pt requested to see CM.
CM met with pt at bedside. She states she will need to take time off of work and inquired if CM can assist her with forms.
At this time, she requests CM to print the forms, so she can complete and get to her window treatment installer, and submit back to her HR.
CM obtained the email and printed the forms, to provide to mbr.
[2024-04-07 16:48] LABS: Glucose 541 mg/dl (70-99)
[2024-04-07] MEDS: NOVOLOG FLEXPEN 15 UNITS SC (17:12)
[2024-04-07] MEDS: LOVENOX 40 MG SC (17:16)
[2024-04-07] MEDS: CORTEF 10 MG PO (17:16)
[2024-04-07 19:21] LABS: Glucose - Point of Care 463 mg/dl (70-99)
[2024-04-07 20:08] LABS: Glucose 478 mg/dl (70-99)
[2024-04-07] MEDS: NOVOLOG FLEXPEN-HIGH RESISTANCE SC (20:30)
[2024-04-07] MEDS: NOVOLOG FLEXPEN 10 UNITS SC (20:56)
[2024-04-07 22:58] LABS: Glucose - Point of Care 159 mg/dl (70-99)
[2024-04-07] MEDS: TYLENOL 650 MG PO (22:59)
[2024-04-07 23:34] VITALS: BP 98/65
[2024-04-08 03:26] LABS: Glucose - Point of Care 32 mg/dl (70-99)
[2024-04-08] MEDS: DEXTROSE 50% SYRINGE 12.5 GRAMS IV (03:30)
[2024-04-08 03:41] LABS: Glucose - Point of Care 152 mg/dl (70-99)
[2024-04-08 04:40] LABS: Glucose - Point of Care 115 mg/dl (70-99)
--- NOTE | 2024-04-08 05:03 | W.PN.UPDATE ---
Update Note
Progress Note Update
Arrived for a rapid response call to bedside. Apparently her blood glucose dropped to 32 and she had s/s of hypoglycemia. With dextrose IV she was coming back around. Will continue to monitor her glucose readings.
[2024-04-08 05:51] LABS: Glucose - Point of Care 248 mg/dl (70-99)
[2024-04-08] MEDS: SYNTHROID 175 MCG PO (05:58)
--- NOTE | 2024-04-08 06:05 | PTCARENOTE ---
Pt awakened for followup BS @ 0320. BS 32. Pt responsive and able to take orange juice, but quite diaphoretic and slow w/verbal responses, stating she didn't feel well. Due to poor responsiveness, Dextrose 50% 12.5 gm adm IV. Pt promptly became more
responsive and skin became dry, however pt became very anxious and disoriented, calling out names, trying to use phone but not knowing how, etc. Gradually after about another 15 min pt was responding more normally and recalling events and oriented
x3. Glucose after Dextrose adm 152. Very fearful of another event while sleeping. Pt accompanied by staff for approx 45 min to help relieve anxiety & Bs repeated at 0430 - 115. Pt given apple juice and BS again repeated @ 0550 - 258.
[2024-04-08 07:11] VITALS: BP 100/66
[2024-04-08 07:20] LABS: Glucose - Point of Care 218 mg/dl (70-99)
[2024-04-08 08:00] LABS: Hematocrit 35.1 % (37.0-47.0); Hemoglobin 11.5 g/dL (12.0-16.0); Mean Corp Hgb Conc. 32.8 g/dL (33.0-37.0); Mean Corpuscular Hgb 25.9 pg (27.0-31.0); Mean Corpuscular Volume 79.1 fL (81.0-99.0); Mean Platelet Volume 11.1 fL (7.4-10.4); Platelet Count 174 10^3/uL (130-400); Red Blood Cell Count 4.44 10^6/uL (4.20-5.40); Red Cell Dist. Width 13.1 % (11.5-14.5); White Blood Cell Count 7.3 10^3/uL (4.8-10.8)
--- NOTE | 2024-04-08 08:15 | W.PN.HOSP.TC ---
Addendum entered and electronically signed by Nel Adam MD, Resident 04/08/24 12:32:
Discussed with Dr. Heller atomizer assembler- agrees with new diagnosis of adrenal insufficiency and treatment with hydrocortisone 20mg AM and 10mg PM, plus fludrocortisone 0.1mg daily. Plan to continue these doeses at discharge- to be titrated
outpatient. Recommended close follow up with endocrinology (with her group or with patient's atomizer assembler she already sees) about 2 weeks after hospital discharge. Should have blood work in about 1.5-2 weeks (prior to appointment).
Original Note:
Today's Communication/Plan
-
insulin adjustment ongoing, continue to monitor BG
Assessment / Plan
Assessment / Plan
48yo F with H type 1 diabetes insulin dependent, pancreatic insufficiency, hypothyroidism who presented to ED 04/05/24 for episode of symptomatic hypoglycemia at home.
Adrenal insufficiency
- Diagnosis accounts for patient's hyponatremia, hypothermia, weakness, and hypoglycemia
- 04/05/24 AM cortisol < 0.2
- 04/06/24 baseline cortisol <0.2, and after stim test <0.2
- Continue hydrocortisone 20mg daily AM, hydrocortisone 10mg daily PM, fludrocortisone 0.1mg daily (started 04/06)
- Reviewed results and treatment with patient. Recommend calling atomizer assembler Monday to move next appointment sooner.
- Continue to monitor BG inpatient- see below
Symptomatic hypoglycemia
Type 1 Diabetes, insulin dependent
A1C 8.4
- Follows with Dr. Modesta Angel ([facility]), last appointment ~Jan, next appointment ~May
- Home insulin regimen includes 18u glargine and sliding scale
- clinical trial educator consulted for insulin management, appreciate recs
- During this hospitalization, she has had poorly controlled blood sugars generally elevated with some episodes of hypoglycemia.
- Given lability of BG, actively adjusting basal insulin dose, and starting steroid replacement recently, will continue to monitor BG inpatient. If BG stabilize on new insulin regimen, will reassess for discharge tomorrow.
- Long discussion with patient this AM about BG and insulin regimen. Recommended having her partner bring in new dexcom monitor today to ensure its accuracy while inpatient. Patient concerned with 'entire batch' of her 3 month supply being bad-
several monitors have failed and just prior to admission her sensor failed without alerting her. Will discuss with coding educator
Hypothermia on admission
- Temp on admission 92.4, required bearhugger rewarming
- No signs of infection, chest xray negative for pneumonia
- Temps improved and remains euthermic, no further need for rewarming measures
Hypothyroidism
- At home takes tirosint 175 mcg daily- ran out 2 weeks ago
- TSH 60.1; free T4 0.41 L, free T3 1.89 L
- Continue synthroid
Pancreatic insufficiency
- Continue zenpep 1 caps po ac
- Zofran prn
Hypomagnesemia
- Continue home magnesium supplementation
- S/p 2g IV mag supplementation --> Mag today 1.9
- Recheck mag level tomorrow
Code status: Full
VTE ppx: ambulation as tolerated, lovenox
Diet: Diabetic
Dispo planning: Anticipate dc home, timing tbd
Anticipated Discharge: 24 - 48 hours
Subjective/Interval History
-
Date of Service: April 08, 2024
Overnight, rapid response called for BG 32 and confusion, both of which resolved with administration of IV dextrose.
Insulin yesterday:
Lantus 12u @ 0848 (basal insulin)
Lantus 3u @ 1302 (increased basal insulin dose to 15u total given persistently elevated BG over past 24h)
Novolog 2u @ 1245 (low resistance sliding scale)
Novolog 15u @ 1712 for BG 541
Novolog 10u @ 6 (high resistance sliding scale started yesterday evening; she says she ate a full dinner, everything that was on her tray including cheeseburger and sides)
This morning she is nervous about her blood sugars and consequences of hypoglycemia had she not been in hospital already to receive care. She is tired from poor sleep and has mild headache. Denies lightheadedness, dizziness, chest pain, shortness of
breath, nausea, vomiting, diarrhea, constipation.
Objective Data
-
Labs:
Laboratory Results
04/08/24
06:21
WBC 7.3
Hgb 11.5 L
Hct 35.1 L
Plt Count 174
Sodium Pending
Potassium Pending
Chloride Pending
Carbon Dioxide Pending
BUN Pending
Creatinine Pending
Glucose Pending
Calcium Pending
Vital Signs:
Vital Signs
Temp Pulse Resp BP Pulse Ox
97.9 F 75 18 100/66 100
04/08/24 07:11 04/08/24 07:11 04/08/24 07:11 04/08/24 07:11 04/08/24 07:11
I&O
04/07/24 04/08/24 04/09/24
06:59 06:59 06:59
Intake Total 1440 / 1440 1859
Balance 1440 / 1440 1859
Review of Systems
-
History Source: Patient (see subjective)
Physical Exam
-
General: Well Developed, Well Nourished, No Apparent Distress, Comfortable and Conversant
HEENT: Normocephalic and Atraumatic
Respiratory: Clear to Auscultation and Non Labored Respirations; Negative Wheezes
Cardiac: Regular Rhythm and S1/S2
GI: Soft, Nontender, Nondistended and Normal Bowel Sounds
Musculoskeletal: No Edema
Skin: Warm (appropriately warm and well perfused) and Dry
Neuro: Awake, Alert, Oriented, AO x 3 and Nonfocal/Grossly Intact
Psych: Calm and Intact Judgement/Insight
Data Reviewed
-
Diagnostic Radiology: Image personally visualized and interpreted and Report Reviewed by me
Labs: Labs Reviewed by me, Discussed with Physician, Discussed with Nurse and Discussed with Patient
[2024-04-08 08:34] LABS: Blood Urea Nitrogen 22 mg/dl (7-17); Calcium 9.3 mg/dl (8.4-10.2); Carbon Dioxide 25 mmol/L (22-30); Chloride 96 mmol/L (98-107); Estimated Creatinine Clearance 62 ml/min; Glucose 234 mg/dl (70-99); Magnesium 1.9 mg/dl (1.6-2.3); Potassium 4.8 mmol/L (3.5-5.1); Sodium 132 mmol/L (135-145); eGFR > 60.00
[2024-04-08] MEDS: NOVOLOG FLEXPEN-HIGH RESISTANCE 4 UNITS SC (08:55)
[2024-04-08] MEDS: FLORINEF 0.1 MG PO (08:56)
[2024-04-08] MEDS: THERAGRAN 1 TABLET PO (08:56)
[2024-04-08] MEDS: MAGNESIUM OXIDE 500 MG PO (08:56)
[2024-04-08] MEDS: HYDROCORTONE/CORTEF 20 MG PO (08:56)
[2024-04-08] MEDS: LANTUS 0.15 UNITS SC (08:56)
[2024-04-08] MEDS: ZENPEP DELAYED RELEASE CAPSULE 2 CAPSULE PO ×3 (08:57→16:58)
--- NOTE | 2024-04-08 10:06 | CM ---
Chart reviewed.
Per hospitalist pt BG cont. to be monitored. Will re-assess ability to d/c tomorrow
Pt cont. to not have any needs at d/c
Diabetes management following
Plan: Home no needs
[2024-04-08 11:44] LABS: Glucose - Point of Care 295 mg/dl (70-99)
--- NOTE | 2024-04-08 11:47 | W.PN.UPDATE ---
Update Note
Progress Note Update
48yo F with PMH type 1 diabetes insulin dependent, pancreatic insufficiency, hypothyroidism who presented to ED 04/05/24 for episode of symptomatic hypoglycemia at home.
Denies chest pain or shortness of breath. Concerned about hypoglycemia overnight.
Gen: NAD, AAOx3, appears chronically ill.
Eyes: EOMI, PERRLA, no scleral icterus.
Neck: supple.
CV: RRR, +S1/S2, no m/r/g.
Resp: CTAB, no rales, wheezes, or rhonchi.
Abd: +BS, soft, NT, ND
Skin: No rashes.
Neuro: CN 2-12 intact, non-focal.
Psych: Normal mood and affect.
Acute Adrenal insufficiency:
-Diagnosis accounts for patient's hyponatremia, hypothermia, weakness, and hypoglycemia
-04/05/24 AM cortisol < 0.2, cosyntropin stim test positive
-Continue hydrocortisone 20mg daily AM, hydrocortisone 10mg daily PM, fludrocortisone 0.1mg daily (started 04/06)
-c/s endocrine
DM1:
-with symptomatic, recurrent, hypoglycemia
-a1c 8.4%
-religious educator following
-cont Lanuts 15/premeal Novolog 5 for now
Hypothyroidism:
-At home takes tirosint 175 mcg daily, ran out 2 weeks BLUEPRINT CLERK
-TSH 60.1; free T4 0.41 L, free T3 1.89 L
-Continue Synthroid
Pancreatic insufficiency: cont Zenpep
Hypomagnesemia, resolved
FULL/Lovenox
Total time spent on today's encounter was 50 minutes which included time spent in counseling the patient/family regarding diagnosis and treatment plan as listed above, goals of care, and symptom management. Case was discussed with nursing staff,
specialists, and care coordinators/case management. All labs and imaging personally reviewed by me. Remainder the time spent in detailed review of previous records, lab data, imaging, and other medical provider documentation.
[2024-04-08] MEDS: NOVOLOG FLEXPEN 5 UNITS SC ×2 (12:32→17:00)
[2024-04-08] MEDS: NOVOLOG FLEXPEN-HIGH RESISTANCE 7 UNITS SC (12:33)
[2024-04-08] MEDS: MACROBID 100 MG PO ×2 (13:51→19:58)
--- NOTE | 2024-04-08 14:10 | PN.DE.MGMTRT ---
Insulin Management
- -
04/08/2024: Diabetes Management f/u:
48 year old female with PMH: Hypothyroidism, T1DM since 26 years old, and gastric bypass- Serina-en-Y at [facility] in 2017-->Pancreatic insufficiency.
Was taking Semglee 18 units daily in AM and lispro SS prior to admission. Pt presented to the ED with AMS changes in setting of hypoglycemia.
Uses CGM- Dexcom G7 and is in the process of getting on an insulin pump. Routinely follows with [facility]- Dr Jeanne Byers [place].
Pt is awake, A/O x3, sitting up in bed eating lunch, says she feels better and that her appetite has significantly improved, able to discuss diabetes mgt.
04/06 notified by [facility] staff via TT about hypoglycemia- Lantus dose reduced from 18 units to 12. Pt continued to have hypoglycemia at lunch time and AC NovoLog was placed on hold. Her corrective dose was changed from moderate to high by the
hospitalist. Her glucose trended up to 465 at bedtime and her Lantus does was increased to 15 units in AM.
04/07 Bedtime glucose trended up to 463, pt received 25 units of NovoLog btn dinner/bedtime which likely contributed to another episode of hypoglycemia as low as 32 @ 22:55. FBG 218 this AM, will start AC NovoLog 5 units. Cont Lantus 15 units in AM.
Cont corrective insulin with meals
Encouraged pt to call the [employer]- [employer] to discuss challenges with her sensor.
Discussed plan of care with pt and Nurse.
Diabetes History
- -
Type of Diabetes: 2 requiring insulin
Pre-Admission Diabetes Regimen
04/08/24
06:21
Creatinine 0.8
Lab Results
Hemoglobin A1c 8.4 % (4.0-5.6) H 04/05/24 07:19
Insulin Pump Settings
IP Diabetes Regimen
04/07/24 04/07/24 04/07/24
15:27 16:18 19:19
Glucose 541 H*
POC Glucose 418 H 463 H*
04/07/24 04/07/24 04/08/24
19:39 22:55 03:24
Glucose 478 H*
POC Glucose 159 H 32 L*
04/08/24 04/08/24 04/08/24
03:40 04:37 05:50
Glucose
POC Glucose 152 H 115 H 248 H
04/08/24 04/08/24 04/08/24
06:21 07:18 11:43
Glucose 234 H
POC Glucose 218 H 295 H
Meal type: Lunch
Meal type: Breakfast
Meal type: Dinner
Amount consumed: 100%
Amount consumed: 100%
Amount consumed: 100%
Patient Education
[2024-04-08 15:29] VITALS: BP 107/72
[2024-04-08 16:54] LABS: Glucose - Point of Care 239 mg/dl (70-99)
[2024-04-08] MEDS: LOVENOX 40 MG SC (17:00)
[2024-04-08] MEDS: CORTEF 10 MG PO (17:00)
[2024-04-08] MEDS: NOVOLOG FLEXPEN-MODERATE RESISTANCE 3 UNITS SC (17:01)
[2024-04-08 21:24] LABS: Glucose - Point of Care 221 mg/dl (70-99)
[2024-04-08 23:58] VITALS: BP 116/74
[2024-04-09 03:41] LABS: Glucose - Point of Care 88 mg/dl (70-99)
[2024-04-09] MEDS: SYNTHROID 175 MCG PO (06:31)
[2024-04-09 07:26] LABS: Glucose - Point of Care 167 mg/dl (70-99)
[2024-04-09 07:30] VITALS: BP 108/69
[2024-04-09] MEDS: LANTUS 0.15 UNITS SC (07:44)
[2024-04-09] MEDS: MACROBID 100 MG PO (07:44)
[2024-04-09] MEDS: FLORINEF 0.1 MG PO (07:44)
[2024-04-09] MEDS: ZENPEP DELAYED RELEASE CAPSULE 2 CAPSULE PO ×2 (07:44→12:46)
[2024-04-09] MEDS: THERAGRAN 1 TABLET PO (07:44)
[2024-04-09] MEDS: MAGNESIUM OXIDE 500 MG PO (07:44)
[2024-04-09] MEDS: HYDROCORTONE/CORTEF 20 MG PO (07:44)
[2024-04-09] MEDS: NOVOLOG FLEXPEN 5 UNITS SC ×2 (07:45→12:28)
[2024-04-09] MEDS: NOVOLOG FLEXPEN-MODERATE RESISTANCE 1 UNITS SC (07:46)
[2024-04-09 08:04] LABS: Hematocrit 37.1 % (37.0-47.0); Hemoglobin 12.1 g/dL (12.0-16.0); Mean Corp Hgb Conc. 32.6 g/dL (33.0-37.0); Mean Corpuscular Volume 79.8 fL (81.0-99.0); Platelet Count 190 10^3/uL (130-400); Red Blood Cell Count 4.65 10^6/uL (4.20-5.40); White Blood Cell Count 6.7 10^3/uL (4.8-10.8)
--- NOTE | 2024-04-09 08:21 | W.PN.HOSP.TC ---
Today's Communication/Plan
-
insulin adjustment ongoing, continue to monitor BG
Assessment / Plan
Assessment / Plan
48yo F with H type 1 diabetes insulin dependent, pancreatic insufficiency, hypothyroidism who presented to ED 04/05/24 for episode of symptomatic hypoglycemia at home.
Adrenal insufficiency
- Diagnosis accounts for patient's hyponatremia, hypothermia, weakness, and hypoglycemia
- 04/05/24 AM cortisol < 0.2
- 04/06/24 baseline cortisol <0.2, and after stim test <0.2
- Continue hydrocortisone 20mg daily AM, hydrocortisone 10mg daily PM, fludrocortisone 0.1mg daily (started 04/06)
- Reviewed results and treatment with patient. She should call compliance auditor to schedule appointment for 2 weeks after hospital discharge. Referral info for endocrinology added to discharge paperwork.
- Continue to monitor BG inpatient- see below
Symptomatic hypoglycemia
Type 1 Diabetes, insulin dependent
A1C 8.4
- Follows with Dr. Modesta Angel ([facility]), last appointment ~Jan, next appointment ~May
- Home insulin regimen includes 18u glargine and sliding scale
- unit educator consulted for insulin management, appreciate recs
- During this hospitalization, she has had poorly controlled blood sugars generally elevated with some episodes of hypoglycemia.
- Lability of BG improving- no episodes of hypoglycemia in past 24 hours. Continue to monitor BG and reassess for discharge later today.
- Patient using own dexcom and comparing to accuchecks- she is concerned with accuracy of dexcom monitor. Advised her to continue accuchecks at home if dexcom unreliable.
- Follow up with endocrinology outpatient.
Hypothermia on admission
- Temp on admission 92.4, required bearhugger rewarming
- No signs of infection, chest xray negative for pneumonia
- Temps improved and remains euthermic, no further need for rewarming measures
Hypothyroidism
- At home takes tirosint 175 mcg daily- ran out 2 weeks prior to admission
- TSH 60.1; free T4 0.41 L, free T3 1.89 L
- Continue synthroid. Can resume tirosint at discharge
- Follow up with endocrinology outpatient
Pancreatic insufficiency
- Continue zenpep 1 caps po ac
- Zofran prn
Hypomagnesemia
- Continue home magnesium supplementation
- S/p 2g IV mag supplementation --> Mag 1.9 yesterday
- AM labs pending
Code status: Full
VTE ppx: ambulation as tolerated, lovenox
Diet: Diabetic
Dispo planning: Anticipate dc home, timing tbd
Anticipated Discharge: Within 24 hours
Subjective/Interval History
-
Date of Service: April 09, 2024
No acute events overnight. No episodes of hypoglycemia in past 24 hours. Urinary symptoms improving. Better sleep last night, feels more rested. Denies lightheadedness, dizziness, chest pain, shortness of breath, nausea, vomiting, diarrhea,
constipation. Tolerating PO diet. Ambulating without difficulty.
Objective Data
-
Labs:
Laboratory Results
04/09/24
07:22
WBC 6.7
Hgb 12.1
Hct 37.1
Plt Count 190
Sodium Pending
Potassium Pending
Chloride Pending
Carbon Dioxide Pending
BUN Pending
Creatinine Pending
Glucose Pending
Calcium Pending
Vital Signs:
Vital Signs
Temp Pulse Resp BP Pulse Ox
97.5 F 67 16 108/69 100
04/09/24 07:30 04/09/24 07:30 04/09/24 07:30 04/09/24 07:30 04/09/24 07:30
I&O
04/08/24 04/09/24 04/10/24
06:59 06:59 06:59
Intake Total 1860 / 1860 1020 / 1020
Balance 1859 1020 / 1020
Review of Systems
-
History Source: Patient (see subjective)
Physical Exam
-
General: Well Developed, Well Nourished, No Apparent Distress, Comfortable and Conversant
HEENT: Normocephalic and Atraumatic
Respiratory: Clear to Auscultation and Non Labored Respirations; Negative Wheezes
Cardiac: Regular Rhythm and S1/S2
GI: Soft, Nontender, Nondistended and Normal Bowel Sounds
Musculoskeletal: No Edema
Skin: Warm (appropriately warm and well perfused) and Dry
Neuro: Awake, Alert, Oriented, AO x 3 and Nonfocal/Grossly Intact
Psych: Calm and Intact Judgement/Insight
Data Reviewed
-
Diagnostic Radiology: Image personally visualized and interpreted and Report Reviewed by me
Labs: Labs Reviewed by me, Discussed with Physician, Discussed with Nurse and Discussed with Patient
[2024-04-09 08:39] LABS: Blood Urea Nitrogen 16 mg/dl (7-17); Calcium 9.7 mg/dl (8.4-10.2); Carbon Dioxide 28 mmol/L (22-30); Chloride 98 mmol/L (98-107); Estimated Creatinine Clearance 62 ml/min; Glucose 167 mg/dl (70-99); Sodium 136 mmol/L (135-145); eGFR > 60.00
--- NOTE | 2024-04-09 09:51 | CM ---
DM educator involved.
Pt continues with CGM monitoring, insulin management and 1800 ADA diet.
Prior CM gave pt PCP follow up information .
PLAN Home .No anticipated Dc needs
--- NOTE | 2024-04-09 10:27 | W.PN.UPDATE ---
Update Note
Progress Note Update
I saw and evaluated the patient. I reviewed the resident�s note and agree with findings and plan as documented in the resident�s note.
No new complaints.
Gen: NAD, AAOx3, appears chronically ill.
Eyes: EOMI, PERRLA, no scleral icterus.
Neck: supple.
CV: remains RRR, +S1/S2, no m/r/g.
Resp: remains CTAB, no rales, wheezes, or rhonchi.
Abd: remains +BS, soft, NT, ND
Skin: No rashes.
Neuro: CN 2-12 intact, non-focal.
Psych: Normal mood and affect.
Acute Adrenal insufficiency:
-Diagnosis accounts for patient's hyponatremia, hypothermia, weakness, and hypoglycemia
-04/05/24 AM cortisol < 0.2, cosyntropin stim test positive
-Continue hydrocortisone 20mg daily AM, hydrocortisone 10mg daily PM, fludrocortisone 0.1mg daily (started 04/06)
DM1:
-with symptomatic, recurrent, hypoglycemia
-a1c 8.4%
-simulation educator following
-cont Lanuts 15/premeal Novolog 5
Hypothyroidism:
-At home takes tirosint 175 mcg daily, ran out 2 weeks CASTING SORTER
-TSH 60.1; free T4 0.41 L, free T3 1.89 L
-Continue Synthroid
Pancreatic insufficiency: cont Zenpep
Hypomagnesemia, resolved
FULL/Lovenox
Medically cleared for discharge with close outpatient follow-up.
Total time spent on d/c = 31 min. This included today's physical exam, progress note, review of laboratory and diagnostic data, preparation of discharge documents and prescriptions, and discussions about the pt's hospital course and discharge plan
with the patient and other medical records library professor involved in the patient's care.
[2024-04-09 11:58] LABS: Glucose - Point of Care 238 mg/dl (70-99)
--- NOTE | 2024-04-09 12:14 | W.DCSUMMARY ---
Addendum entered and electronically signed by Tomás Richardson MD 04/09/24 12:37:
Read, reviewed, and agree. See same day progress note for additional details.
Original Note:
Discharge Summary
Discharge Data
Date of Admission: 04/05/24
Date of Discharge: 04/09/24
-
Pending Results: Yes
Additional Pending Results:
04/05/24 00:49 Blood/Venous Blood Culture - Preliminary
No Growth in 4 days- Final report to follow
04/05/24 00:49 Blood/Venous Blood Culture - Preliminary
No Growth in 4 days- Final report to follow
04/05/24 11:29 Urine Urine Culture - Final
Escherichia coli
Hospital Course
Discharging Physician : Dr. Adam, Dr. Richardson
Disposition : Home
Primary care physician : Unknown. Referral provided to Dr. Adams
Principal Discharge diagnosis : Adrenal insufficiency, symptomatic hypoglycemia
Chronic Discharge diagnosis : Type 1 diabetes insulin dependent, hypothyroidism, pancreatic insufficiency, hypomagnesemia
Hospital Course : Presented to ED 04/05/24 for episode of symptomatic hypoglycemia at home. In the ED, she was also hypothermic which resolved with rewarming measures. Her AM random cortisol was <0.2, and ACTH stimulation test the following
morning confirmed adrenal insufficiency. She was started on hydrocortisone and fludrocortisone replacement therapy, and case was discussed with endocrinology. Her A1C was 8.4. Her blood sugars were generally elevated throughout admission, though she
did have another episode of hypoglycemia. critical care educator was consulted for recommendations of insulin doses. Prior to discharge her blood glucose stabilized (though remained generally elevated) without overnight hypoglycemia. Urine culture (from
arrival in ED) was positive for EColi and she endorsed urinary symptoms; macrobid started. On day of discharge she was stable. She will follow up with endocrinology within 2 weeks and establish care with PCP within 1 week.
Important imaging findings :
Chest xray 04/05/24
IMPRESSION:
Clear lungs.
Procedure findings :
Cortisol baseline: < 0.2
Cortisol response to ACTH 30 min: < 0.2
Cortisol response to ACTH 60 min: < 0.2
Discharge Plan
-
Patient Disposition: Home (Routine Discharge)
Discharge Diagnosis/Procedures: Adrenal insufficiency, episodes of symptomatic hypoglycemia and type 1 diabetes, hypothyroidism, pancreatic insufficiency, hypomagnesemia
Condition: Good
Diet: Diabetic, Carb Controlled
Activity: No restrictions and As tolerated
Driving Restrictions: As prior to admission
Bathing Restrictions: OK to Shower
Instructions: Low blood sugar in people with diabetes, [place] Disease (DC)
Referrals:
Nel Heller MD [Consulting Staff] - in two weeks (Call to schedule appointment with pearl fisherman 2 weeks after hospital discharge (you can see a doctor at [place], or you can see the doctor you previously saw at [facility] You should get blood work done prior to your appointment- your pearl fisherman will write the script.)
NONE,* [Family Provider] -
Jhon Adams MD, Resident [Family Practice Resident Year2] - in less than 1 week (Call to schedule new patient appointment with a Primary Care Provider within 1 week of hospital discharge.)
Additional Discharge Medication Instructions: New medications:
- Fludrocortisone 0.1mg- Take 1 tablet every morning.
- Hydrocortisone 20mg- Take 1 tablet every morning.
- Hydrocortisone 10mg- Take 1 tablet every evening.
- Nitrofurantoin (also known as macrobid)- Take 1 tablet two times per day until 04/13/24 then stop. This is for your UTI.
Talk to your pearl fisherman or primary care provider for refills of fludrocortisone and hydrocortisone
Insulin changes:
- Glargine (also known as semglee)- 15 units every morning
- Lispro (also known as humalog)- 5 units with every meal
Take your other medications as you were prior to hospitalization. You can take levothyroxine daily until your regular medications are delivered (when you can, start tirosint and stop levothyroxine; do not take both together).
Prescriptions:
New
nitrofurantoin monohyd/m-cryst 100 mg Capsule
100 mg PO BID 4 Days Qty: 8 0RF
fludrocortisone 0.1 mg Tablet
0.1 mg PO DAILY Qty: 30 0RF
hydrocortisone 10 mg Tablet
10 mg PO QPM Qty: 30 0RF
hydrocortisone 20 mg Tablet
20 mg PO DAILY Qty: 30 0RF
levothyroxine 175 mcg capsule
175 mcg PO DAILY Qty: 30 0RF
Rx Instructions:
Take 1 capsule daily as needed to replace tirosint. Do not take this med and tirosint together.
Continued
Tirosint-Amber 175 mcg/mL solution
175 mcg PO DAILY
meloxicam 15 mg Tablet
15 mg PO DAILYPRN PRN (Reason: moderate pain)
therapeutic multivitamin Tablet
1 tab PO DAILY
ibuprofen 200 mg Tablet
400 mg PO BIDPRN PRN (Reason: fever/headache)
vitamin D3-vitamin K2 (MK4) 1,000-100 unit-mcg Tablet
1 tab PO DAILY
Zenpep 10,000-32,000 -42,000 unit Capsule,Delayed Release(Dr/Ec)
2 cap PO AC Qty: 180 0RF
magnesium oxide 500 mg capsule
500 mg PO DAILY Qty: 30 0RF
ondansetron HCl 4 mg tablet
4 mg PO Q8H PRN (Reason: nausea and vomiting) Qty: 20 0RF
Changed
insulin glargine-yfgn [Semglee(insulin glarg-yfgn)Pen] 100 unit/mL (3 mL) Insulin Pen
15 unit SC DAILY Qty: 15 0RF
insulin lispro [Humalog KwikPen Insulin] 100 unit/mL Insulin Pen
5 unit SC AC Qty: 15 0RF
Discharge Date and Time
Print Language: DANISH
[2024-04-09] MEDS: NOVOLOG FLEXPEN-MODERATE RESISTANCE 3 UNITS SC (12:28)
[2024-04-09] MEDS: AFLURIA (36 mos+) 2024-2025 FORMULA 0.5 ML IM (13:01)
--- NOTE | 2024-04-09 13:36 | PN.DE.MGMTRT ---
Insulin Management
- -
04/09/2024: Diabetes Management follow up:
Patient admitted via EMS for change in mental status, with significant hypoglycemia 36. PMH: Hypothyroidism, T1DM since 26 years old, and gastric bypass- Serina-en-Y at [place] in 2017-->Pancreatic insufficiency.
Prior to admission was taking Semglee 18 units daily in AM and lispro SS prior to admission
Uses CGM- Dexcom G7. [facility]- Dr Jeanne Byers [place].
Pt is awake, A/O x3, sitting up in bed able to discuss diabetes mgt. Patient states she has been on a medtronic pump since 2011 but in September 2023 transitioned to the [employer]andem pump with G7. She states she had frequent issues with the DexCom G7 failing
so she stopped the pump in January. Her sorter laundry articles gave her a sliding scale to follow for meals and she started the Semglee 18 units in AM at that time.
04/08 Glucose range 218 to 295 receiving 5 units novolog with low corrective.
04/09 3AM glucose 88, fasting 167 this AM, will continue AC NovoLog 5 units with Lantus 15 units in AM. Cont corrective insulin with meals
Encouraged pt to call her sorter laundry articles for appointment ALY with new dx of acute adrenal insufficiency AND to restart her pump. Advised patient if she does have a sensor failure she should call [employer] BEFORE she removes the sensor so they can
troubleshoot with her.
Provided my number for further assistance with pump.
Discussed plan of care with pt and Nurse.
Diabetes History
- -
Type of Diabetes: 1
Pre-Admission Diabetes Regimen
04/09/24
07:22
Creatinine 0.8
Lab Results
Hemoglobin A1c 8.4 % (4.0-5.6) H 04/05/24 07:19
Insulin Pump Settings
IP Diabetes Regimen
04/08/24 04/08/24 04/09/24
16:48 21:22 03:39
Glucose
POC Glucose 239 H 221 H 88
04/09/24 04/09/24 04/09/24
07:22 07:25 11:57
Glucose 167 H
POC Glucose 167 H 238 H
Meal type: Lunch
Meal type: Breakfast
Meal type: Lunch
Amount consumed: 100%
Amount consumed: 75%
Amount consumed: 100%
Patient Education
[2024-04-09 14:17] VITALS: BP 124/78
== END 2024-04-09 14:39 | disposition home or self-care (01) | DRG 644 ==
LOC: 4 EAST ACU 12:57
PROVIDERS: Internal Medicine; Student in an Organized Health Care Education/Training Program; ADMITTING PHYSICIAN Internal Medicine; ATTENDING PHYSICIAN Internal Medicine; EMERGENCY PHYSICIAN Student in an Organized Health Care Education/Training Program
DX: E27.40 Unspecified adrenocortical insufficiency (principal); N39.0 Urinary tract infection, site not specified; F17.200 Nicotine dependence, unspecified, uncomplicated; E10.649 Type 1 diabetes mellitus with hypoglycemia without coma; Z79.4 Long term (current) use of insulin; E03.9 Hypothyroidism, unspecified; K86.89 Other specified diseases of pancreas; E83.42 Hypomagnesemia
CPT/HCPCS: 71045; 80048; 80053; 81003; 81015; 82010; 82533; 82947; 82962; 83036; 83605; 83735; 84439; 84443; 84481; 84702; 85025; 85027; 87040; 87077; 87086; 87186; 90686; 96365; 96366; 99291; 99406; G0008

== ENCOUNTER 2024-06-14 05:09 | Emergency (ER) | payer BC, SELFPAY ==
[2024-06-14 05:12] VITALS: BP 166/88; BMI 28.3
[2024-06-14 05:14] LABS: Glucose - Point of Care 168 mg/dl (70-99)
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
[2024-06-14] MEDS: MOTRIN 600 MG PO (06:18)
[2024-06-14 06:23] LABS: Glucose - Point of Care 166 mg/dl (70-99)
== END 2024-06-14 06:28 ==
LOC: EMR 05:09
PROVIDERS: EMERGENCY PHYSICIAN Student in an Organized Health Care Education/Training Program
DX: M25.531 Pain in right wrist (principal); Y04.0XXA Assault by unarmed brawl or fight, initial encounter; E11.65 Type 2 diabetes mellitus with hyperglycemia; E03.9 Hypothyroidism, unspecified; F17.200 Nicotine dependence, unspecified, uncomplicated; Z79.4 Long term (current) use of insulin
CPT/HCPCS: 99284; 73110; 82962